=== PATIENT | female | born 1955 | race Caucasian/White ===

== ENCOUNTER 2019-12-31 16:17 | Inpatient (IN) ==
[2019-12-31 17:41] LABS: Basophils % 0.4 % (0.0-0.8); Eosinophils # 0.2 10*3/uL (0.0-0.87); Eosinophils % 1.5 % (0.00-10.9); Hematocrit 43.3 VOL% (35.7-47.0); Hemoglobin 13.4 GM/DL (12.0-16.0); Hgb & Hct Comparison OK; Immature Granulocytes % 0.8 %; Immature Granulocytes Absolute 0.09 #; Lymphocytes # 1.9 10*3/uL (1.4-4.0); Lymphocytes % 16.4 % (21.3-54.2); Mean Corpuscular HGB Conc 30.9 GM/DL (32-36); Mean Corpuscular Hemoglobin 27 PG (27-34); Mean Corpuscular Volume 88.5 FL (87-102); Monocytes # 0.7 10*3/uL (0.11-0.8); Monocytes % 6.4 % (1.7-12.7); Neutrophils # 8.4 10*3/uL (1.4-7.4); Neutrophils % 74.5 % (38.7-73.9); Platelet Count 400 T/CUMM (130-400)
[2019-12-31 17:52] LABS: D-Dimer <= 0.5 MG/L FEU (<=0.5); PT Patient Result 10.8 SECS (9.8-11.9)
[2019-12-31 18:10] LABS: Albumin/Globulin Ratio 0.8 RATIO (1.1-2.2); Anion Gap 6.9 MMOL/L (5.0-15.0); Bilirubin,Total 0.5 MG/DL (0.2-1.0); Globulin 3.2 G/DL (2.3-3.5); Osmolality,Calculated 280.3 MOS/KG (273-304); Potassium 3.9 MMOL/L (3.5-5.1)
[2019-12-31] MEDS ORDERED: guaiFENesin/DM ER 600-30 MG TABLET PO PRN (19:04)
[2019-12-31] MEDS ORDERED: PROMETHAZINE 25 MG/1 ML VIAL IM PRN (19:04)
[2019-12-31] MEDS ORDERED: NICOTINE 21 MG/24 HR PATCH TRANSDERM PRN (19:04)
[2019-12-31] MEDS ORDERED: LEVOFLOXACIN INJ 100 ML IV ONE (20:51)
[2019-12-31] MEDS: LEVOFLOXACIN INJ 500 MG in PREMIX 1 EACH IV SCH (20:56)
[2019-12-31] MEDS: SODIUM CHLORIDE 0.9% 1,000 ML IV SCH (22:16)
[2020-01-01] MEDS: ALBUTEROL/IPRATROPIUM 3 ML NEB RESP TX SCH ×4 (00:25→19:23)
[2020-01-01 05:21] LABS: Basophils % 0.3 % (0.0-0.8); Eosinophils # 0.3 10*3/uL (0.0-0.87); Eosinophils % 2.8 % (0.00-10.9); Hematocrit 41.6 VOL% (35.7-47.0); Hemoglobin 12.9 GM/DL (12.0-16.0); Hgb & Hct Comparison OK; Immature Granulocytes % 0.4 %; Immature Granulocytes Absolute 0.05 #; Lymphocytes # 1.6 10*3/uL (1.4-4.0); Lymphocytes % 13.9 % (21.3-54.2); Mean Corpuscular Hemoglobin 28 PG (27-34); Mean Corpuscular Volume 89.1 FL (87-102); Monocytes # 0.8 10*3/uL (0.11-0.8); Monocytes % 7.2 % (1.7-12.7); Neutrophils # 8.6 10*3/uL (1.4-7.4); Neutrophils % 75.4 % (38.7-73.9); Platelet Count 375 T/CUMM (130-400)
[2020-01-01 05:35] LABS: Anion Gap 6.5 MMOL/L (5.0-15.0); Osmolality,Calculated 278.4 MOS/KG (273-304); Potassium 3.5 MMOL/L (3.5-5.1)
[2020-01-01] MEDS: SODIUM CHLORIDE 0.9% 1,000 ML IV SCH (08:44)
[2020-01-01] MEDS: PARoxetine 20 MG TABLET PO SCH (10:40)
[2020-01-01] MEDS: LEVOFLOXACIN INJ 500 MG in PREMIX 1 EACH IV SCH (20:42)
[2020-01-02] MEDS: ALBUTEROL/IPRATROPIUM 3 ML NEB RESP TX SCH ×4 (01:03→20:19)
[2020-01-02 06:31] LABS: Basophils % 0.2 % (0.0-0.8); Eosinophils # 0.2 10*3/uL (0.0-0.87); Eosinophils % 2.3 % (0.00-10.9); Hematocrit 39.8 VOL% (35.7-47.0); Hemoglobin 12.3 GM/DL (12.0-16.0); Hgb & Hct Comparison OK; Immature Granulocytes % 0.4 %; Immature Granulocytes Absolute 0.04 #; Lymphocytes # 1.4 10*3/uL (1.4-4.0); Mean Corpuscular HGB Conc 30.9 GM/DL (32-36); Mean Corpuscular Hemoglobin 28 PG (27-34); Mean Corpuscular Volume 89.4 FL (87-102); Monocytes # 0.7 10*3/uL (0.11-0.8); Neutrophils # 7.2 10*3/uL (1.4-7.4); Neutrophils % 75.1 % (38.7-73.9); Platelet Count 362 T/CUMM (130-400)
[2020-01-02 07:00] LABS: Anion Gap 7.2 MMOL/L (5.0-15.0); Osmolality,Calculated 274.5 MOS/KG (273-304); Potassium 3.2 MMOL/L (3.5-5.1)
[2020-01-02] MEDS: PARoxetine 20 MG TABLET PO SCH (09:37)
[2020-01-02] MEDS: SODIUM CHLORIDE 0.9% 1,000 ML IV SCH ×2 (12:10→21:06)
[2020-01-02] MEDS: POTASSIUM CHLORIDE 20 MEQ TABLET PO PRN ×4 (13:00→18:30)
[2020-01-02] MEDS ORDERED: ZALEPLON 5 MG CAPSULE PO PRN (20:41)
[2020-01-02] MEDS: LEVOFLOXACIN INJ 500 MG in PREMIX 1 EACH IV SCH (21:06)
[2020-01-03] MEDS: ALBUTEROL/IPRATROPIUM 3 ML NEB RESP TX SCH ×4 (01:09→18:50)
[2020-01-03 06:02] LABS: Anion Gap 9.1 MMOL/L (5.0-15.0); Magnesium 1.9 MG/DL (1.8-2.4); Osmolality,Calculated 274.5 MOS/KG (273-304); Potassium 4.1 MMOL/L (3.5-5.1)
[2020-01-03] MEDS: PARoxetine 20 MG TABLET PO SCH (10:07)
[2020-01-03] MEDS: SODIUM CHLORIDE 0.9% 1,000 ML IV SCH ×2 (14:23→21:04)
[2020-01-03] MEDS: TEMAZEPAM 7.5 MG CAPSULE PO SCH (21:03)
[2020-01-03] MEDS: LEVOFLOXACIN INJ 500 MG in PREMIX 1 EACH IV SCH (21:04)
[2020-01-04] MEDS: ALBUTEROL/IPRATROPIUM 3 ML NEB RESP TX SCH ×4 (01:43→19:42)
[2020-01-04 05:17] LABS: Basophils % 0.3 % (0.0-0.8); Eosinophils # 0.4 10*3/uL (0.0-0.87); Eosinophils % 3.4 % (0.00-10.9); Hematocrit 42.7 VOL% (35.7-47.0); Hemoglobin 13.1 GM/DL (12.0-16.0); Hgb & Hct Comparison OK; Immature Granulocytes % 0.4 %; Immature Granulocytes Absolute 0.04 #; Lymphocytes # 1.5 10*3/uL (1.4-4.0); Lymphocytes % 13.7 % (21.3-54.2); Mean Corpuscular HGB Conc 30.7 GM/DL (32-36); Mean Corpuscular Hemoglobin 28 PG (27-34); Mean Corpuscular Volume 90.1 FL (87-102); Monocytes # 0.8 10*3/uL (0.11-0.8); Monocytes % 7.6 % (1.7-12.7); Neutrophils # 7.9 10*3/uL (1.4-7.4); Neutrophils % 74.6 % (38.7-73.9); Platelet Count 383 T/CUMM (130-400)
[2020-01-04 05:24] LABS: PT Patient Result 10.9 SECS (9.8-11.9)
[2020-01-04 05:31] LABS: Anion Gap 7.7 MMOL/L (5.0-15.0); Osmolality,Calculated 274.5 MOS/KG (273-304); Potassium 4.7 MMOL/L (3.5-5.1)
[2020-01-04] MEDS ORDERED: PROMETHAZINE 25 MG/1 ML VIAL IM ONE (07:46)
[2020-01-04] MEDS ORDERED: MEPERIDINE 50 MG/1 ML VIAL IM ONE (07:46)
[2020-01-04] MEDS ORDERED: MIDAZOLAM 2 MG/2 ML VIAL ONE (08:15)
[2020-01-04] MEDS ORDERED: LIDOCAINE 1% 20 ML VIAL MISC INJ ONE (08:30)
[2020-01-04] MEDS ORDERED: LIDOCAINE 2% 20 ML VIAL RESP TX ONE (08:30)
[2020-01-04] MEDS ORDERED: MIDAZOLAM 2 MG/2 ML VIAL IV ONE (08:30)
[2020-01-04] MEDS ORDERED: LIDOCAINE 2% VISCOUS 100 ML BOTTLE SWISH/SPIT ONE (08:30)
[2020-01-04] MEDS: PARoxetine 20 MG TABLET PO SCH (11:23)
[2020-01-04] MEDS: SODIUM CHLORIDE 0.9% 1,000 ML IV SCH ×2 (16:56→21:16)
[2020-01-04] MEDS: LEVOFLOXACIN INJ 500 MG in PREMIX 1 EACH IV SCH (20:05)
[2020-01-04] MEDS: TEMAZEPAM 7.5 MG CAPSULE PO SCH (21:04)
[2020-01-05] MEDS: ALBUTEROL/IPRATROPIUM 3 ML NEB RESP TX SCH ×4 (00:25→19:38)
[2020-01-05] MEDS: PARoxetine 20 MG TABLET PO SCH (09:03)
[2020-01-05] MEDS: LEVOFLOXACIN INJ 500 MG in PREMIX 1 EACH IV SCH (19:27)
[2020-01-05] MEDS: SODIUM CHLORIDE 0.9% 1,000 ML IV SCH (19:28)
[2020-01-05] MEDS: TEMAZEPAM 7.5 MG CAPSULE PO SCH (20:35)
[2020-01-06] MEDS: ALBUTEROL/IPRATROPIUM 3 ML NEB RESP TX SCH ×4 (00:05→20:02)
[2020-01-06] MEDS: PARoxetine 20 MG TABLET PO SCH (09:53)
[2020-01-06] MEDS ORDERED: DIAZEPAM 5 MG TABLET PO ONE (13:19)
[2020-01-06] MEDS ORDERED: HYDROmorphone 2 MG/1 ML VIAL IV PRN (16:38)
[2020-01-06] MEDS ORDERED: KETOROLAC 30 MG/1 ML VIAL IV ONE (16:38)
[2020-01-06] MEDS: LEVOFLOXACIN INJ 500 MG in PREMIX 1 EACH IV SCH (20:14)
[2020-01-06] MEDS: TEMAZEPAM 7.5 MG CAPSULE PO SCH (20:35)
[2020-01-06] MEDS: SODIUM CHLORIDE 0.9% 1,000 ML IV SCH (22:10)
[2020-01-06] MEDS: KETOROLAC 30 MG/1 ML VIAL IV PRN (22:26)
[2020-01-07] MEDS: ALBUTEROL/IPRATROPIUM 3 ML NEB RESP TX SCH ×4 (00:12→19:20)
[2020-01-07] MEDS: KETOROLAC 30 MG/1 ML VIAL IV PRN (02:46)
[2020-01-07] MEDS: PARoxetine 20 MG TABLET PO SCH (08:40)
[2020-01-07] MEDS ORDERED: ENOXAPARIN 40 MG/0.4 ML SYRINGE SUBCUT SCH (21:00)
[2020-01-07] MEDS: TEMAZEPAM 7.5 MG CAPSULE PO SCH (21:00)
[2020-01-07] MEDS: DOCUSATE SODIUM 100 MG CAPSULE PO SCH (21:00)
[2020-01-07] MEDS: LEVOFLOXACIN INJ 500 MG in PREMIX 1 EACH IV SCH (21:02)
[2020-01-08] MEDS: ALBUTEROL/IPRATROPIUM 3 ML NEB RESP TX SCH ×4 (01:00→19:45)
[2020-01-08 06:21] LABS: Basophils % 0.3 % (0.0-0.8); Eosinophils # 0.4 10*3/uL (0.0-0.87); Eosinophils % 3.8 % (0.00-10.9); Hematocrit 38.1 VOL% (35.7-47.0); Hemoglobin 11.7 GM/DL (12.0-16.0); Hgb & Hct Comparison OK; Immature Granulocytes % 0.4 %; Immature Granulocytes Absolute 0.05 #; Lymphocytes # 1.7 10*3/uL (1.4-4.0); Lymphocytes % 14.7 % (21.3-54.2); Mean Corpuscular HGB Conc 30.7 GM/DL (32-36); Mean Corpuscular Hemoglobin 28 PG (27-34); Mean Corpuscular Volume 90.5 FL (87-102); Monocytes # 0.9 10*3/uL (0.11-0.8); Monocytes % 8.1 % (1.7-12.7); Neutrophils # 8.1 10*3/uL (1.4-7.4); Neutrophils % 72.7 % (38.7-73.9); Platelet Count 382 T/CUMM (130-400)
[2020-01-08 06:35] LABS: Osmolality,Calculated 271.8 MOS/KG (273-304)
[2020-01-08] MEDS: PARoxetine 20 MG TABLET PO SCH (08:34)
[2020-01-08] MEDS: DOCUSATE SODIUM 100 MG CAPSULE PO SCH ×2 (08:35→20:45)
[2020-01-08] MEDS ORDERED: guaiFENesin/CODEINE 5 ML LIQUID PO PRN (09:41)
[2020-01-08] MEDS: predniSONE 20 MG TABLET PO SCH (15:00)
[2020-01-08] MEDS: ALUMINUM/MAGNES/SIMETH MAX STR 30 ML UDCUP PO PRN ×2 (16:59→22:11)
[2020-01-08] MEDS: TEMAZEPAM 7.5 MG CAPSULE PO SCH (20:45)
[2020-01-09] MEDS: ALBUTEROL/IPRATROPIUM 3 ML NEB RESP TX SCH ×3 (01:40→12:54)
[2020-01-09] MEDS: DOCUSATE SODIUM 100 MG CAPSULE PO SCH (08:26)
[2020-01-09] MEDS: predniSONE 20 MG TABLET PO SCH (08:26)
[2020-01-09] MEDS: PARoxetine 20 MG TABLET PO SCH (08:26)
[2020-01-09] MEDS ORDERED: BUDESONIDE/FORMOTEROL 160-4.5 INHALER 6 GM INH SCH (10:00)
[2020-01-09 12:06] VITALS: BP 128/70
[2020-01-10] MEDS ORDERED: LEVOFLOXACIN 500 MG TABLET PO SCH (09:00)
== END 2020-01-09 14:02 | disposition home or self-care (01) ==
LOC: EDUNIT# → EDBD → N.ED 16:17 → SUPCPDRO 19:04 → SUATTDRO 19:04 → N.EDINP 19:04 → N.TELES 22:03 → N.4E 01-04 12:47
PROVIDERS: ADMIT Internal Medicine; ATTEND Hospitalist

== ENCOUNTER 2020-02-25 06:53 | Inpatient (IN) ==
[2020-02-25] MEDS ORDERED: ceFAZolin 1,000 MG in SYRINGE 1 EACH IV ONE (07:00)
[2020-02-25] MEDS ORDERED: HEPARIN/NACL 0.9% 2 UNITS/ML 500 ML IV ONE (07:17)
[2020-02-25] MEDS ORDERED: EPINEPHrine 1 MG/ML VIAL ONE (07:35)
[2020-02-25] MEDS ORDERED: LIDOCAINE 1% 5 ML VIAL ONE (07:35)
[2020-02-25] MEDS ORDERED: FAMOTIDINE 20 MG TABLET PO ONE (07:38)
[2020-02-25] MEDS ORDERED: DIAZEPAM 5 MG TABLET PO ONE (07:39)
[2020-02-25] MEDS ORDERED: ceFAZolin 1,000 MG VIAL ONE (07:44)
[2020-02-25] MEDS ORDERED: FAMOTIDINE 20 MG TABLET ONE (07:45)
[2020-02-25] MEDS ORDERED: DIAZEPAM 5 MG TABLET ONE (07:45)
[2020-02-25] MEDS: LACTATED RINGERS 1,000 ML IV SCH ×3 (07:54→22:26)
[2020-02-25] MEDS ORDERED: MIDAZOLAM 2 MG/2 ML VIAL ONE ×2 (07:59→10:52)
[2020-02-25] MEDS ORDERED: fentaNYL 100 MCG/2 ML VIAL ONE ×2 (07:59→10:52)
[2020-02-25] MEDS ORDERED: TALC INTRAPLEURAL POWDER 3 GM VIAL INTRAPLEUR ONE (08:14)
[2020-02-25] MEDS ORDERED: SUGAMMADEX 200 MG/2 ML VIAL IV ONE (09:48)
[2020-02-25] MEDS ORDERED: TISSUE ADHESIVE 1 EACH APPLICATOR TOP ONE (10:15)
[2020-02-25] MEDS ORDERED: ONDANSETRON 4 MG/2 ML VIAL IV PRN ×2 (10:26→10:45)
[2020-02-25] MEDS ORDERED: PROMETHAZINE INJ 25 MG in SODIUM CHLORIDE 0.9% 50 ML IV PRN (10:45)
[2020-02-25] MEDS ORDERED: diphenhydrAMINE 50 MG/1 ML VIAL IV PRN (10:45)
[2020-02-25] MEDS: MEPERIDINE 25 MG/1 ML VIAL IV PRN ×2 (10:50→11:30)
[2020-02-25] MEDS ORDERED: propofoL 200 MG/20 ML VIAL IV ONE (10:52)
[2020-02-25] MEDS ORDERED: SEVOFLURANE 1 UNIT/15 MINUTE INH ONE (10:52)
[2020-02-25] MEDS ORDERED: LIDOCAINE 2% 5 ML VIAL ONE (10:52)
[2020-02-25] MEDS ORDERED: DEXAMETHASONE 4 MG/1 ML VIAL ONE (10:52)
[2020-02-25] MEDS ORDERED: ACETAMINOPHEN 1,000 MG/100 ML VIAL IV ONE (10:53)
[2020-02-25] MEDS ORDERED: ROCURONIUM 100 MG/10 ML VIAL IV ONE (10:53)
[2020-02-25] MEDS ORDERED: KETOROLAC 30 MG/1 ML VIAL ONE (10:53)
[2020-02-25] MEDS ORDERED: ONDANSETRON 4 MG/2 ML VIAL ONE (11:26)
[2020-02-25] MEDS ORDERED: MEPERIDINE 25 MG/1 ML VIAL ONE (11:26)
[2020-02-25] MEDS ORDERED: ALBUTEROL 2.5 MG/3 ML NEB RESP TX ONE ×2 (11:35→11:38)
[2020-02-25 12:35] LABS: Basophils % 0.1 % (0.0-0.8); Eosinophils # 0.1 10*3/uL (0.0-0.87); Eosinophils % 0.6 % (0.00-10.9); Hematocrit 31.6 VOL% (35.7-47.0); Hemoglobin 9.8 GM/DL (12.0-16.0); Immature Granulocytes % 1.3 %; Immature Granulocytes Absolute 0.29 #; Lymphocytes # 0.6 10*3/uL (1.4-4.0); Lymphocytes % 2.6 % (21.3-54.2); Mean Corpuscular Volume 90.5 FL (87-102); Mean Platelet Volume 8.6 FL (9.6-12.0); Monocytes % 1.7 % (1.7-12.7); Neutrophils % 93.7 % (38.7-73.9); Platelet Count 567 T/CUMM (130-400); Red Blood Count 3.49 MC/CUMM (3.8-5.5); Red Cell Distribution Width 15.5 % (9.3-17.3); White Blood Count 21.8 T/CUMM (4-12)
[2020-02-25 12:53] LABS: Eosinophils 1 % (0-10); Hypochromasia 1+; Lymphocytes 3 % (20-55); Microcytosis 1+; Platelet Estimate Increased; Segmented Neutrophils 95 % (50-85); Total Cells Counted 100
[2020-02-25 12:56] LABS: Calcium 7.9 MG/DL (8.5-10.1); Osmolality,Calculated 280.4 MOS/KG (273-304)
[2020-02-25] MEDS: ALBUTEROL/IPRATROPIUM 3 ML NEB RESP TX SCH ×2 (13:09→19:40)
[2020-02-25] MEDS: HYDROmorphone 2 MG/1 ML VIAL IV PRN ×2 (14:10→19:52)
[2020-02-25] MEDS: oxyCODONE/ACETAMINOPHEN 5-325 MG TABLET PO PRN ×2 (16:40→22:35)
[2020-02-25] MEDS: BUDESONIDE/FORMOTEROL 160-4.5 INHALER 6 GM INH SCH (20:00)
[2020-02-25] MEDS ORDERED: NON-FORMULARY MEDICATION (Albuterol Sulfate 90 mcg/actuation HFA aerosol inhaler) INH SCH (21:00)
[2020-02-26] MEDS: ALBUTEROL/IPRATROPIUM 3 ML NEB RESP TX SCH ×4 (01:07→19:33)
[2020-02-26] MEDS: HYDROmorphone 2 MG/1 ML VIAL IV PRN ×3 (04:34→20:34)
[2020-02-26] MEDS: oxyCODONE/ACETAMINOPHEN 5-325 MG TABLET PO PRN ×2 (06:01→19:23)
[2020-02-26] MEDS: LACTATED RINGERS 1,000 ML IV SCH ×2 (08:21→08:22)
[2020-02-26] MEDS: ENOXAPARIN 40 MG/0.4 ML SYRINGE SUBCUT SCH (11:16)
[2020-02-26] MEDS: PARoxetine 20 MG TABLET PO SCH (11:16)
[2020-02-26] MEDS: BUDESONIDE/FORMOTEROL 160-4.5 INHALER 6 GM INH SCH ×2 (11:16→20:33)
[2020-02-26] MEDS: KETOROLAC 10 MG TABLET PO PRN (21:17)
[2020-02-27] MEDS: ALBUTEROL/IPRATROPIUM 3 ML NEB RESP TX SCH ×4 (00:16→19:41)
[2020-02-27] MEDS: KETOROLAC 10 MG TABLET PO PRN ×3 (06:54→22:50)
[2020-02-27] MEDS: HYDROmorphone 2 MG/1 ML VIAL IV PRN ×4 (06:54→22:50)
[2020-02-27] MEDS: ENOXAPARIN 40 MG/0.4 ML SYRINGE SUBCUT SCH (09:05)
[2020-02-27] MEDS: PARoxetine 20 MG TABLET PO SCH (09:06)
[2020-02-27] MEDS: BUDESONIDE/FORMOTEROL 160-4.5 INHALER 6 GM INH SCH ×3 (09:06→20:15)
[2020-02-28] MEDS: ALBUTEROL/IPRATROPIUM 3 ML NEB RESP TX SCH ×4 (00:35→20:23)
[2020-02-28] MEDS: HYDROmorphone 2 MG/1 ML VIAL IV PRN ×3 (04:12→20:38)
[2020-02-28] MEDS: KETOROLAC 10 MG TABLET PO PRN (05:51)
[2020-02-28] MEDS: oxyCODONE/ACETAMINOPHEN 5-325 MG TABLET PO PRN ×2 (05:52→15:50)
[2020-02-28] MEDS: ENOXAPARIN 40 MG/0.4 ML SYRINGE SUBCUT SCH (13:36)
[2020-02-28] MEDS: PARoxetine 20 MG TABLET PO SCH (13:37)
[2020-02-28] MEDS: BUDESONIDE/FORMOTEROL 160-4.5 INHALER 6 GM INH SCH ×2 (13:38→20:38)
[2020-02-29] MEDS: HYDROmorphone 2 MG/1 ML VIAL IV PRN ×4 (00:31→20:38)
[2020-02-29] MEDS: ALBUTEROL/IPRATROPIUM 3 ML NEB RESP TX SCH ×4 (01:00→19:36)
[2020-02-29] MEDS: oxyCODONE/ACETAMINOPHEN 5-325 MG TABLET PO PRN (08:51)
[2020-02-29] MEDS: PARoxetine 20 MG TABLET PO SCH (09:25)
[2020-02-29] MEDS: ENOXAPARIN 40 MG/0.4 ML SYRINGE SUBCUT SCH (09:25)
[2020-02-29] MEDS: BUDESONIDE/FORMOTEROL 160-4.5 INHALER 6 GM INH SCH ×2 (09:57→20:37)
[2020-03-01] MEDS: ALBUTEROL/IPRATROPIUM 3 ML NEB RESP TX SCH ×4 (01:06→19:47)
[2020-03-01] MEDS: HYDROmorphone 2 MG/1 ML VIAL IV PRN ×3 (01:24→18:21)
[2020-03-01] MEDS: oxyCODONE/ACETAMINOPHEN 5-325 MG TABLET PO PRN ×3 (05:38→21:08)
[2020-03-01] MEDS: ENOXAPARIN 40 MG/0.4 ML SYRINGE SUBCUT SCH (09:16)
[2020-03-01] MEDS: PARoxetine 20 MG TABLET PO SCH (09:16)
[2020-03-01] MEDS: BUDESONIDE/FORMOTEROL 160-4.5 INHALER 6 GM INH SCH ×2 (09:23→20:49)
[2020-03-01 11:43] LABS: Basophils % 0.3 % (0.0-0.8); Eosinophils # 0.5 10*3/uL (0.0-0.87); Eosinophils % 3.3 % (0.00-10.9); Hematocrit 28.7 VOL% (35.7-47.0); Hemoglobin 8.9 GM/DL (12.0-16.0); Immature Granulocytes % 0.7 %; Immature Granulocytes Absolute 0.11 #; Lymphocytes # 1.2 10*3/uL (1.4-4.0); Lymphocytes % 7.4 % (21.3-54.2); Mean Corpuscular Volume 88.3 FL (87-102); Mean Platelet Volume 8.5 FL (9.6-12.0); Monocytes % 8.1 % (1.7-12.7); Neutrophils % 80.2 % (38.7-73.9); Platelet Count 583 T/CUMM (130-400); Red Blood Count 3.25 MC/CUMM (3.8-5.5); Red Cell Distribution Width 14.7 % (9.3-17.3); White Blood Count 15.9 T/CUMM (4-12)
[2020-03-01 11:57] LABS: Calcium 8.7 MG/DL (8.5-10.1); Osmolality,Calculated 271.8 MOS/KG (273-304)
[2020-03-01 11:58] LABS: INR 1.1; PT Patient Result 11.4 SECS (9.8-11.9)
[2020-03-02] MEDS: ALBUTEROL/IPRATROPIUM 3 ML NEB RESP TX SCH ×4 (00:29→19:35)
[2020-03-02] MEDS: oxyCODONE/ACETAMINOPHEN 5-325 MG TABLET PO PRN ×2 (04:37→21:07)
[2020-03-02 06:56] LABS: Basophils % 0.2 % (0.0-0.8); Eosinophils # 0.4 10*3/uL (0.0-0.87); Eosinophils % 2.5 % (0.00-10.9); Hematocrit 29.7 VOL% (35.7-47.0); Hemoglobin 9.2 GM/DL (12.0-16.0); Immature Granulocytes % 0.6 %; Immature Granulocytes Absolute 0.11 #; Lymphocytes % 5.7 % (21.3-54.2); Mean Corpuscular Volume 87.6 FL (87-102); Mean Platelet Volume 9.2 FL (9.6-12.0); Monocytes % 8.1 % (1.7-12.7); Neutrophils % 82.9 % (38.7-73.9); Platelet Count 601 T/CUMM (130-400); Red Blood Count 3.39 MC/CUMM (3.8-5.5); Red Cell Distribution Width 14.8 % (9.3-17.3); White Blood Count 17.8 T/CUMM (4-12)
[2020-03-02 07:09] LABS: Calcium 8.6 MG/DL (8.5-10.1); Osmolality,Calculated 273.7 MOS/KG (273-304)
[2020-03-02] MEDS: HYDROmorphone 2 MG/1 ML VIAL IV PRN ×4 (09:20→22:45)
[2020-03-02] MEDS ORDERED: TALC INTRAPLEURAL POWDER 3 GM VIAL INTRAPLEUR ONE (10:28)
[2020-03-02] MEDS ORDERED: SUGAMMADEX 200 MG/2 ML VIAL IV ONE (12:50)
[2020-03-02] MEDS ORDERED: ALBUTEROL/IPRATROPIUM 3 ML NEB RESP TX ONE (13:02)
[2020-03-02] MEDS ORDERED: propofoL 200 MG/20 ML VIAL IV ONE (13:08)
[2020-03-02] MEDS ORDERED: LIDOCAINE 2% 5 ML VIAL ONE (13:09)
[2020-03-02] MEDS ORDERED: SEVOFLURANE 1 UNIT/15 MINUTE INH ONE (13:09)
[2020-03-02] MEDS ORDERED: MIDAZOLAM 2 MG/2 ML VIAL ONE (13:09)
[2020-03-02] MEDS ORDERED: ONDANSETRON 4 MG/2 ML VIAL ONE (13:10)
[2020-03-02] MEDS ORDERED: KETOROLAC 30 MG/1 ML VIAL ONE (13:10)
[2020-03-02] MEDS ORDERED: fentaNYL 100 MCG/2 ML VIAL ONE (13:10)
[2020-03-02] MEDS ORDERED: ROCURONIUM 100 MG/10 ML VIAL IV ONE (13:10)
[2020-03-02] MEDS ORDERED: diphenhydrAMINE 50 MG/1 ML VIAL IV PRN (13:18)
[2020-03-02] MEDS ORDERED: ONDANSETRON 4 MG/2 ML VIAL IV PRN (13:18)
[2020-03-02] MEDS ORDERED: PROMETHAZINE INJ 25 MG in SODIUM CHLORIDE 0.9% 50 ML IV PRN (13:18)
[2020-03-02] MEDS: MEPERIDINE 25 MG/1 ML VIAL IV PRN ×2 (13:20→13:30)
[2020-03-02] MEDS ORDERED: PROMETHAZINE 25 MG/1 ML VIAL ONE (13:20)
[2020-03-02] MEDS: PARoxetine 20 MG TABLET PO SCH (16:51)
[2020-03-02] MEDS: BUDESONIDE/FORMOTEROL 160-4.5 INHALER 6 GM INH SCH ×2 (16:52→22:45)
[2020-03-02] MEDS: KETOROLAC 10 MG TABLET PO SCH (19:31)
[2020-03-03] MEDS: KETOROLAC 10 MG TABLET PO SCH ×4 (00:28→17:46)
[2020-03-03] MEDS: HYDROmorphone 2 MG/1 ML VIAL IV PRN ×5 (01:31→17:46)
[2020-03-03] MEDS: ALBUTEROL/IPRATROPIUM 3 ML NEB RESP TX SCH ×4 (01:33→20:08)
[2020-03-03] MEDS: oxyCODONE/ACETAMINOPHEN 5-325 MG TABLET PO PRN ×2 (04:17→21:12)
[2020-03-03 05:50] LABS: Basophils % 0.2 % (0.0-0.8); Eosinophils # 0.7 10*3/uL (0.0-0.87); Eosinophils % 3.7 % (0.00-10.9); Hematocrit 29.3 VOL% (35.7-47.0); Hemoglobin 8.9 GM/DL (12.0-16.0); Immature Granulocytes % 0.9 %; Immature Granulocytes Absolute 0.17 #; Lymphocytes # 1.3 10*3/uL (1.4-4.0); Lymphocytes % 6.5 % (21.3-54.2); Mean Corpuscular HGB Conc 30.4 GM/DL (32-36); Mean Corpuscular Volume 90.2 FL (87-102); Mean Platelet Volume 8.9 FL (9.6-12.0); Neutrophils % 80.7 % (38.7-73.9); Platelet Count 563 T/CUMM (130-400); Red Blood Count 3.25 MC/CUMM (3.8-5.5); White Blood Count 19.8 T/CUMM (4-12)
[2020-03-03 06:14] LABS: Calcium 8.3 MG/DL (8.5-10.1); Osmolality,Calculated 280.5 MOS/KG (273-304)
[2020-03-03] MEDS: PARoxetine 20 MG TABLET PO SCH (08:23)
[2020-03-03] MEDS: BUDESONIDE/FORMOTEROL 160-4.5 INHALER 6 GM INH SCH ×2 (08:30→21:13)
[2020-03-03] MEDS: ENOXAPARIN 40 MG/0.4 ML SYRINGE SUBCUT SCH (16:41)
[2020-03-04] MEDS: KETOROLAC 10 MG TABLET PO SCH ×5 (00:46→23:33)
[2020-03-04] MEDS: HYDROmorphone 2 MG/1 ML VIAL IV PRN ×4 (01:08→23:33)
[2020-03-04] MEDS: ALBUTEROL/IPRATROPIUM 3 ML NEB RESP TX SCH ×4 (02:54→19:03)
[2020-03-04] MEDS: ENOXAPARIN 40 MG/0.4 ML SYRINGE SUBCUT SCH (09:41)
[2020-03-04] MEDS: PARoxetine 20 MG TABLET PO SCH (09:41)
[2020-03-04] MEDS: BUDESONIDE/FORMOTEROL 160-4.5 INHALER 6 GM INH SCH ×2 (09:43→20:45)
[2020-03-04] MEDS: oxyCODONE/ACETAMINOPHEN 5-325 MG TABLET PO PRN (21:26)
[2020-03-05] MEDS: ALBUTEROL/IPRATROPIUM 3 ML NEB RESP TX SCH ×4 (00:02→20:01)
[2020-03-05] MEDS: oxyCODONE/ACETAMINOPHEN 5-325 MG TABLET PO PRN ×3 (04:32→18:55)
[2020-03-05] MEDS: KETOROLAC 10 MG TABLET PO SCH ×2 (05:37→11:21)
[2020-03-05] MEDS: HYDROmorphone 2 MG/1 ML VIAL IV PRN (08:01)
[2020-03-05] MEDS: PARoxetine 20 MG TABLET PO SCH (08:02)
[2020-03-05] MEDS: ENOXAPARIN 40 MG/0.4 ML SYRINGE SUBCUT SCH (08:02)
[2020-03-05] MEDS: BUDESONIDE/FORMOTEROL 160-4.5 INHALER 6 GM INH SCH ×2 (08:14→20:35)
[2020-03-05 16:06] LABS: ABG Base Excess 7.6 MMOL/L (-2.5-2.5); ABG HCO3 31.3 MMOL/L (20-26); ABG Oxygen Saturation 94.7 % (95-100); ABG PCO2 46.7 MM HG (35-48); ABG PH 7.451 (7.35-7.45); ABG PO2 71.4 MM HG (80-95); ABG TCO2 30.1 MMOL/L (23-27); Allen Test Positive; Pt O2 Delivery Device Venturi Mask
[2020-03-05] MEDS: methylPREDNISolone SOD SUC 40 MG/1 ML VIAL IV SCH (20:35)
[2020-03-05] MEDS: MEROPENEM 500 MG in SODIUM CHLORIDE 0.9% 100 ML IV SCH (20:36)
[2020-03-06] MEDS: ALBUTEROL/IPRATROPIUM 3 ML NEB RESP TX SCH ×4 (00:15→20:09)
[2020-03-06] MEDS: ACETYLCYSTEINE 20% 800 MG/4 ML VIAL RESP TX SCH ×3 (00:22→12:30)
[2020-03-06] MEDS: oxyCODONE/ACETAMINOPHEN 5-325 MG TABLET PO PRN ×3 (01:20→17:47)
[2020-03-06] MEDS: MEROPENEM 500 MG in SODIUM CHLORIDE 0.9% 100 ML IV SCH ×4 (01:20→20:03)
[2020-03-06] MEDS: methylPREDNISolone SOD SUC 40 MG/1 ML VIAL IV SCH ×3 (03:10→20:03)
[2020-03-06] MEDS: ENOXAPARIN 40 MG/0.4 ML SYRINGE SUBCUT SCH (08:11)
[2020-03-06] MEDS: PARoxetine 20 MG TABLET PO SCH (08:11)
[2020-03-06] MEDS: BUDESONIDE/FORMOTEROL 160-4.5 INHALER 6 GM INH SCH ×2 (08:12→20:03)
[2020-03-07] MEDS: MEROPENEM 500 MG in SODIUM CHLORIDE 0.9% 100 ML IV SCH ×2 (00:34→08:09)
[2020-03-07] MEDS: ACETYLCYSTEINE 20% 800 MG/4 ML VIAL RESP TX SCH ×2 (00:40→07:46)
[2020-03-07] MEDS: ALBUTEROL/IPRATROPIUM 3 ML NEB RESP TX SCH ×2 (00:40→07:46)
[2020-03-07] MEDS: methylPREDNISolone SOD SUC 40 MG/1 ML VIAL IV SCH ×2 (03:24→10:34)
[2020-03-07] MEDS: BUDESONIDE/FORMOTEROL 160-4.5 INHALER 6 GM INH SCH (08:08)
[2020-03-07] MEDS: oxyCODONE/ACETAMINOPHEN 5-325 MG TABLET PO PRN (08:08)
[2020-03-07] MEDS: PARoxetine 20 MG TABLET PO SCH (08:09)
[2020-03-07] MEDS: ENOXAPARIN 40 MG/0.4 ML SYRINGE SUBCUT SCH (08:09)
[2020-03-07 11:21] VITALS: BP 139/76
== END 2020-03-07 12:50 | disposition home or self-care (01) | DRG 180 ==
LOC: N.OR 06:53 → N.SDSINP 06:54 → N.3E 11:59
PROVIDERS: ADMIT Surgery; ATTEND Surgery

== ENCOUNTER 2020-03-09 15:24 | Observation (INO) ==
[2020-03-09] MEDS ORDERED: chlorproMAZINE INJ 25 MG in SODIUM CHLORIDE 0.9% 100 ML IV PRN (17:20)
[2020-03-09] MEDS ORDERED: LACTULOSE 20 GM/30 ML UDCUP PO PRN (17:20)
[2020-03-09] MEDS ORDERED: chlorproMAZINE 25 MG TABLET PO PRN (17:20)
[2020-03-09] MEDS ORDERED: MAGNESIUM HYDROXIDE SUSP 30 ML UDCUP PO PRN (17:20)
[2020-03-09] MEDS ORDERED: traMADol 50 MG TABLET PO PRN (17:20)
[2020-03-09] MEDS ORDERED: ONDANSETRON 4 MG/2 ML VIAL IV PRN (17:20)
[2020-03-09] MEDS ORDERED: guaiFENesin 200 MG/10 ML UDCUP PO PRN (17:20)
[2020-03-09] MEDS ORDERED: BENZTROPINE 2 MG/2 ML AMP IV PRN (17:20)
[2020-03-09] MEDS ORDERED: PROMETHAZINE INJ 25 MG in SODIUM CHLORIDE 0.9% 50 ML IV PRN (17:20)
[2020-03-09] MEDS ORDERED: MYLANTA/LIDO VISC 2:1 300 ML BOTTLE SWISH/SPIT PRN (17:20)
[2020-03-09] MEDS ORDERED: MYLANTA/LIDO VISC 2:1 300 ML BOTTLE SWISH/SWAL PRN (17:20)
[2020-03-09] MEDS ORDERED: diphenhydrAMINE CAP 25 MG CAPSULE PO PRN (17:20)
[2020-03-09] MEDS ORDERED: ALUMINUM/MAGNES/SIMETH MAX STR 30 ML UDCUP PO PRN (17:20)
[2020-03-09] MEDS ORDERED: ACETAMINOPHEN 325 MG TABLET PO PRN (17:20)
[2020-03-09] MEDS ORDERED: chlorproMAZINE INJ 50 MG in SODIUM CHLORIDE 0.9% 100 ML IV PRN (17:20)
[2020-03-09] MEDS ORDERED: TEMAZEPAM 7.5 MG CAPSULE PO PRN (17:20)
[2020-03-09] MEDS ORDERED: LOPERAMIDE 2 MG CAPSULE PO PRN ×2 (17:20)
[2020-03-09] MEDS: ALPRAZolam 0.25 MG TABLET PO PRN (18:07)
[2020-03-10] MEDS: ALPRAZolam 0.25 MG TABLET PO PRN ×2 (02:13→10:01)
[2020-03-10] MEDS ORDERED: diphenhydrAMINE 50 MG/1 ML VIAL IV ONE (09:00)
[2020-03-10] MEDS ORDERED: FAMOTIDINE 20 MG TABLET PO ONE (09:00)
[2020-03-10] MEDS ORDERED: CARBOplatin 200 MG in SODIUM CHLORIDE 0.9% 250 ML IV ONE (09:00)
[2020-03-10] MEDS ORDERED: ONDANSETRON 4 MG/2 ML VIAL IV ONE (09:00)
[2020-03-10] MEDS ORDERED: SODIUM CHLORIDE 0.9% IV ONE (09:00)
[2020-03-10] MEDS ORDERED: PACLITAXEL IV ONE (09:00)
[2020-03-10] MEDS ORDERED: DEXAMETHASONE 10 MG/1 ML VIAL IV ONE (09:00)
[2020-03-10 15:54] VITALS: BP 135/71
== END 2020-03-10 18:50 | disposition home or self-care (01) ==
LOC: N.4E
PROVIDERS: ADMIT Specialist; ATTEND Specialist

== ENCOUNTER 2020-11-20 08:35 | Observation (INO) ==
[2020-11-20] MEDS ORDERED: ONDANSETRON 4 MG/2 ML VIAL IV STA ×2 (10:58→14:00)
[2020-11-20] MEDS ORDERED: SODIUM CHLORIDE 0.9% 1,000 ML IV STA ×2 (10:58→13:05)
[2020-11-20 11:15] LABS: Basophils % 0.4 % (0.0-0.8); Hematocrit 38.8 VOL% (35.7-47.0); Hemoglobin 11.9 GM/DL (12.0-16.0); Immature Granulocytes % 0.6 %; Immature Granulocytes Absolute 0.06 #; Lymphocytes # 0.6 10*3/uL (1.4-4.0); Lymphocytes % 5.9 % (21.3-54.2); Mean Corpuscular HGB Conc 30.7 GM/DL (32-36); Mean Corpuscular Volume 77.4 FL (87-102); Mean Platelet Volume 8.7 FL (9.6-12.0); Monocytes % 8.3 % (1.7-12.7); Neutrophils % 84.8 % (38.7-73.9); Platelet Count 476 T/CUMM (130-400); Red Blood Count 5.01 MC/CUMM (3.8-5.5); Red Cell Distribution Width 17.5 % (9.3-17.3); White Blood Count 10.1 T/CUMM (4-12)
[2020-11-20 11:32] LABS: Alanine Aminotransferase < 6 U/L (13-56); Albumin 2.4 G/DL (3.4-5.0); Alkaline Phosphatase 106 U/L (45-117); Amylase 30 U/L (25-115); Aspartate Amino Transferase 7 U/L (0-37); Blood Urea Nitrogen 11 MG/DL (7-18); Calcium 8.1 MG/DL (8.5-10.1); Carbon Dioxide 32 MMOL/L (21-32); Estimated Glom Filtration Rate 112 ML/MIN; Glucose 93 MG/DL (74-106); Osmolality,Calculated 266.2 MOS/KG (273-304); Potassium 2.6 MMOL/L (3.5-5.1); Sodium 134 MMOL/L (136-145); Total Protein 6.7 G/DL (6.4-8.2)
[2020-11-20] MEDS ORDERED: POTASSIUM CHLORIDE 20 MEQ TABLET PO STA (13:59)
[2020-11-20 14:09] LABS: Bacteria,Urine Few /HPF (Few); Bilirubin,Urine Small mg/dL (Negative); Blood, Urine Small mg/dL (Negative); Glucose,Urine (UA) Negative (Negative); Ketones,Urine 5 mg/dL (Negative); Mucus,Urine Many /LPF (Occasional); Nitrite,Urine Negative (Negative); Protein,Urine 30 MG/DL; RBC,Urine 2 /HPF (0-4); Squamous Epithelial Cell,Urine Occasional /HPF (0-10); Urine Appearance CLOUDY (Clear); Urine Color Amber (Yellow); Urine Specific Gravity 1.015 (1.001-1.035)
[2020-11-20] MEDS ORDERED: cefTRIAXone 1,000 MG in SODIUM CHLORIDE 0.9% 100 ML IV STA (14:23)
[2020-11-20] MEDS ORDERED: ZALEPLON 5 MG CAPSULE PO PRN (14:36)
[2020-11-20] MEDS ORDERED: DEXTROSE 50% 25 GM/50 ML VIAL IV PRN (14:36)
[2020-11-20] MEDS ORDERED: CALCIUM CARBONATE CHEW 500 MG TABLET PO PRN (14:36)
[2020-11-20] MEDS ORDERED: ONDANSETRON 4 MG/2 ML VIAL IV PRN ×2 (14:36→15:54)
[2020-11-20] MEDS ORDERED: GLUCAGON 1 MG VIAL IM PRN (14:36)
[2020-11-20] MEDS ORDERED: DOCUSATE SODIUM 100 MG CAPSULE PO PRN (14:36)
[2020-11-20] MEDS ORDERED: ACETAMINOPHEN 325 MG TABLET PO PRN (14:36)
[2020-11-20] MEDS ORDERED: IBUPROFEN 800 MG TABLET PO PRN (14:43)
[2020-11-20] MEDS ORDERED: PROCHLORPERAZINE 10 MG TABLET PO PRN (14:43)
[2020-11-20] MEDS ORDERED: PROMETHAZINE 25 MG/1 ML VIAL IM PRN (15:13)
[2020-11-20] MEDS ORDERED: PROCHLORPERAZINE 5 MG TABLET PO PRN (15:30)
[2020-11-20] MEDS ORDERED: ALUMINUM/MAGNES/SIMETH MAX STR 30 ML UDCUP PO PRN (15:54)
[2020-11-20] MEDS ORDERED: MYLANTA/LIDO VISC 2:1 300 ML BOTTLE SWISH/SWAL PRN (15:54)
[2020-11-20] MEDS ORDERED: MAGNESIUM HYDROXIDE SUSP 30 ML UDCUP PO PRN (15:54)
[2020-11-20] MEDS ORDERED: LOPERAMIDE 2 MG CAPSULE PO PRN ×2 (15:54)
[2020-11-20] MEDS ORDERED: TEMAZEPAM 7.5 MG CAPSULE PO PRN (15:54)
[2020-11-20] MEDS ORDERED: ALPRAZolam 0.25 MG TABLET PO PRN (15:54)
[2020-11-20] MEDS ORDERED: chlorproMAZINE INJ 25 MG in SODIUM CHLORIDE 0.9% 100 ML IV PRN (15:54)
[2020-11-20] MEDS ORDERED: chlorproMAZINE INJ 50 MG in SODIUM CHLORIDE 0.9% 100 ML IV PRN (15:54)
[2020-11-20] MEDS ORDERED: chlorproMAZINE 25 MG TABLET PO PRN (15:54)
[2020-11-20] MEDS ORDERED: LACTULOSE 20 GM/30 ML UDCUP PO PRN (15:54)
[2020-11-20] MEDS ORDERED: diphenhydrAMINE CAP 25 MG CAPSULE PO PRN (15:54)
[2020-11-20] MEDS ORDERED: guaiFENesin 200 MG/10 ML UDCUP PO PRN (15:54)
[2020-11-20] MEDS ORDERED: traMADol 50 MG TABLET PO PRN (15:54)
[2020-11-20] MEDS ORDERED: PROMETHAZINE INJ 25 MG in SODIUM CHLORIDE 0.9% 50 ML IV PRN (15:54)
[2020-11-20] MEDS ORDERED: BENZTROPINE 2 MG/2 ML AMP IV PRN (15:54)
[2020-11-20] MEDS ORDERED: MYLANTA/LIDO VISC 2:1 300 ML BOTTLE SWISH/SPIT PRN (15:54)
[2020-11-20] MEDS: cefTRIAXone 1,000 MG in SODIUM CHLORIDE 0.9% 100 ML IV SCH (17:38)
[2020-11-20] MEDS: NICOTINE 21 MG/24 HR PATCH TRANSDERM SCH (18:44)
[2020-11-20] MEDS: ENOXAPARIN 40 MG/0.4 ML SYRINGE SUBCUT SCH (18:44)
[2020-11-20] MEDS: DEXT 5% NACL 0.9% KCL 20 MEQ 20 MEQ/1,000 ML BAG IV SCH (18:44)
[2020-11-20] MEDS: ALBUTEROL/IPRATROPIUM 3 ML NEB RESP TX SCH (20:45)
[2020-11-21] MEDS: ALBUTEROL/IPRATROPIUM 3 ML NEB RESP TX SCH ×4 (00:39→19:02)
[2020-11-21 05:15] LABS: Alanine Aminotransferase < 6 U/L (13-56); Alkaline Phosphatase 94 U/L (45-117); Aspartate Amino Transferase 9 U/L (0-37); Blood Urea Nitrogen 8 MG/DL (7-18); Calcium 7.9 MG/DL (8.5-10.1); Carbon Dioxide 30 MMOL/L (21-32); Estimated Glom Filtration Rate 107 ML/MIN; Glucose 143 MG/DL (74-106); Osmolality,Calculated 276.5 MOS/KG (273-304); Potassium 3.4 MMOL/L (3.5-5.1); Sodium 139 MMOL/L (136-145); Total Protein 5.7 G/DL (6.4-8.2)
[2020-11-21] MEDS ORDERED: POTASSIUM CHLORIDE 20 MEQ TABLET PO ONE (07:37)
[2020-11-21 08:03] LABS: Eosinophils % 0.2 % (0.00-10.9); Immature Granulocytes % 0.4 %; Immature Granulocytes Absolute 0.02 #
[2020-11-21 08:10] LABS: Basophils % 0.2 % (0.0-0.8); Hematocrit 34.6 VOL% (35.7-47.0); Hemoglobin 10.3 GM/DL (12.0-16.0); Lymphocytes # 0.5 10*3/uL (1.4-4.0); Lymphocytes % 10.5 % (21.3-54.2); Mean Corpuscular HGB Conc 29.8 GM/DL (32-36); Mean Platelet Volume 9.3 FL (9.6-12.0); Monocytes % 11.3 % (1.7-12.7); Neutrophils % 77.4 % (38.7-73.9); Platelet Count 421 T/CUMM (130-400); Red Blood Count 4.27 MC/CUMM (3.8-5.5); Red Cell Distribution Width 17.4 % (9.3-17.3)
[2020-11-21] MEDS ORDERED: HYDROCORTISONE 100 MG VIAL IV ONE (08:57)
[2020-11-21] MEDS: PARoxetine 10 MG TABLET PO SCH (09:17)
[2020-11-21] MEDS: DEXT 5% NACL 0.9% KCL 20 MEQ 20 MEQ/1,000 ML BAG IV SCH (09:19)
[2020-11-21] MEDS: NICOTINE 21 MG/24 HR PATCH TRANSDERM SCH (09:19)
[2020-11-21] MEDS: HYDROCORTISONE 100 MG VIAL IV SCH ×2 (09:52→21:23)
[2020-11-21] MEDS: ENOXAPARIN 40 MG/0.4 ML SYRINGE SUBCUT SCH (16:54)
[2020-11-21] MEDS: cefTRIAXone 1,000 MG in SODIUM CHLORIDE 0.9% 100 ML IV SCH (16:54)
[2020-11-22] MEDS: ALBUTEROL/IPRATROPIUM 3 ML NEB RESP TX SCH ×3 (00:57→11:40)
[2020-11-22] MEDS: DEXT 5% NACL 0.9% KCL 20 MEQ 20 MEQ/1,000 ML BAG IV SCH ×2 (01:04→13:47)
[2020-11-22 06:48] LABS: Basophils % 0.5 % (0.0-0.8); Hematocrit 32.3 VOL% (35.7-47.0); Hemoglobin 9.8 GM/DL (12.0-16.0); Immature Granulocytes % 0.3 %; Immature Granulocytes Absolute 0.01 #; Lymphocytes # 0.4 10*3/uL (1.4-4.0); Lymphocytes % 10.7 % (21.3-54.2); Mean Corpuscular HGB Conc 30.3 GM/DL (32-36); Mean Corpuscular Volume 80.8 FL (87-102); Mean Platelet Volume 9.1 FL (9.6-12.0); Monocytes % 6.3 % (1.7-12.7); Neutrophils % 82.2 % (38.7-73.9); Platelet Count 372 T/CUMM (130-400); Red Cell Distribution Width 17.1 % (9.3-17.3); White Blood Count 3.8 T/CUMM (4-12)
[2020-11-22 07:24] LABS: Osmolality,Calculated 279.4 MOS/KG (273-304); Potassium 4.1 MMOL/L (3.5-5.1)
[2020-11-22] MEDS ORDERED: PANTOPRAZOLE 40 MG TABLET PO SCH (09:00)
[2020-11-22] MEDS ORDERED: predniSONE 10 MG TABLET PO SCH (09:00)
[2020-11-22] MEDS: NICOTINE 21 MG/24 HR PATCH TRANSDERM SCH (09:18)
[2020-11-22] MEDS: PARoxetine 10 MG TABLET PO SCH (09:21)
[2020-11-22 12:25] VITALS: BP 158/77
[2020-11-22] MEDS ORDERED: predniSONE 5 MG TABLET PO SCH (21:00)
== END 2020-11-22 16:50 | disposition home or self-care (01) ==
LOC: N.ED 08:35 → N.EDINP 08:35 → SUATTDRO 14:34 → N.4E 14:48
PROVIDERS: ADMIT Hospitalist; ATTEND Internal Medicine

== ENCOUNTER 2020-11-24 19:38 | Observation (INO) ==
[2020-11-24 20:21] LABS: PT Patient Result 11.5 SECS (10.5-12.0); Partial Thromboplastin Time 26.2 SECS (23.9-33.8)
[2020-11-24 20:28] LABS: Alanine Aminotransferase 12 U/L (13-56); Albumin 2.5 G/DL (3.4-5.0); Alkaline Phosphatase 107 U/L (45-117); Aspartate Amino Transferase 10 U/L (0-37); Bilirubin,Total < 0.39 MG/DL (0.2-1.0); Blood Urea Nitrogen 9 MG/DL (7-18); Calcium 8.2 MG/DL (8.5-10.1); Carbon Dioxide 29 MMOL/L (21-32); Estimated Glom Filtration Rate 140 ML/MIN; Glucose 97 MG/DL (74-106); Osmolality,Calculated 271.8 MOS/KG (273-304); Potassium 3.8 MMOL/L (3.5-5.1); Sodium 137 MMOL/L (136-145); Total Protein 6.1 G/DL (6.4-8.2)
[2020-11-24 20:29] LABS: Basophils % 0.3 % (0.0-0.8); Hematocrit 42.8 VOL% (35.7-47.0); Hemoglobin 12.6 GM/DL (12.0-16.0); Immature Granulocytes % 0.5 %; Immature Granulocytes Absolute 0.04 #; Lymphocytes # 0.6 10*3/uL (1.4-4.0); Lymphocytes % 8.4 % (21.3-54.2); Mean Corpuscular HGB Conc 29.4 GM/DL (32-36); Mean Platelet Volume 9.1 FL (9.6-12.0); Monocytes % 8.3 % (1.7-12.7); Neutrophils % 82.5 % (38.7-73.9); Platelet Count 511 T/CUMM (130-400); Red Blood Count 5.42 MC/CUMM (3.8-5.5); Red Cell Distribution Width 17.3 % (9.3-17.3); White Blood Count 7.5 T/CUMM (4-12)
[2020-11-24] MEDS ORDERED: methylPREDNISolone SOD SUC 125 MG/2 ML VIAL IV STA (20:46)
[2020-11-24 21:07] LABS: ABG Base Excess 6.2 MMOL/L (-2.5-2.5); ABG HCO3 32.3 MMOL/L (20-26); ABG Oxygen Saturation 97.1 % (95-100); ABG PCO2 53.1 MM HG (35-48); ABG PH 7.402 (7.35-7.45); ABG PO2 94.2 MM HG (80-95); ABG TCO2 33.9 MMOL/L (23-27); Allen Test Positive; Pt O2 Delivery Device CPAP
[2020-11-25] MEDS ORDERED: IBUPROFEN 800 MG TABLET PO PRN (02:14)
[2020-11-25] MEDS ORDERED: ALBUTEROL 2.5 MG/3 ML NEB RESP TX PRN (02:17)
[2020-11-25] MEDS ORDERED: ONDANSETRON ODT 4 MG TABLET PO PRN (02:23)
[2020-11-25] MEDS ORDERED: PROCHLORPERAZINE 5 MG TABLET PO PRN (03:32)
[2020-11-25] MEDS ORDERED: DEXTROSE 50% 25 GM/50 ML VIAL IV PRN (03:37)
[2020-11-25] MEDS ORDERED: GLUCAGON 1 MG VIAL IM PRN (03:37)
[2020-11-25] MEDS ORDERED: ACETAMINOPHEN 325 MG TABLET PO PRN (03:38)
[2020-11-25] MEDS ORDERED: MORPHINE 4 MG/1 ML VIAL IV PRN (03:38)
[2020-11-25] MEDS ORDERED: ONDANSETRON 4 MG/2 ML VIAL IV PRN (03:38)
[2020-11-25] MEDS ORDERED: NICOTINE 21 MG/24 HR PATCH TRANSDERM PRN (03:38)
[2020-11-25] MEDS: cephALEXin 500 MG CAPSULE PO SCH ×3 (03:53→15:55)
[2020-11-25 05:23] LABS: Basophils % 0.2 % (0.0-0.8); Hematocrit 39.7 VOL% (35.7-47.0); Hemoglobin 12.1 GM/DL (12.0-16.0); Immature Granulocytes % 0.2 %; Immature Granulocytes Absolute 0.01 #; Lymphocytes # 0.3 10*3/uL (1.4-4.0); Mean Corpuscular HGB Conc 30.5 GM/DL (32-36); Mean Corpuscular Volume 78.5 FL (87-102); Monocytes % 1.3 % (1.7-12.7); Neutrophils % 93.3 % (38.7-73.9); Platelet Count 417 T/CUMM (130-400); Red Blood Count 5.06 MC/CUMM (3.8-5.5); Red Cell Distribution Width 17.5 % (9.3-17.3); White Blood Count 5.4 T/CUMM (4-12)
[2020-11-25 05:51] LABS: Alanine Aminotransferase < 9 U/L (13-56); Albumin 2.3 G/DL (3.4-5.0); Alkaline Phosphatase 101 U/L (45-117); Aspartate Amino Transferase 6 U/L (0-37); Blood Urea Nitrogen 13 MG/DL (7-18); Calcium 8.6 MG/DL (8.5-10.1); Carbon Dioxide 33 MMOL/L (21-32); Estimated Glom Filtration Rate 112 ML/MIN; Glucose 176 MG/DL (74-106); Osmolality,Calculated 278.7 MOS/KG (273-304); Potassium 3.9 MMOL/L (3.5-5.1); Sodium 138 MMOL/L (136-145); Total Protein 6.5 G/DL (6.4-8.2)
[2020-11-25 05:55] LABS: Lymphocytes 6 % (20-55); Segmented Neutrophils 94 % (50-85); Total Cells Counted 100
[2020-11-25 05:56] LABS: Hypochromasia 1+; Microcytosis 1+; Platelet Estimate Adequate
[2020-11-25] MEDS: ALBUTEROL/IPRATROPIUM 3 ML NEB RESP TX SCH ×3 (07:58→20:07)
[2020-11-25] MEDS ORDERED: predniSONE 10 MG TABLET PO SCH (09:00)
[2020-11-25] MEDS: ENOXAPARIN 40 MG/0.4 ML SYRINGE SUBCUT SCH (09:23)
[2020-11-25] MEDS: PARoxetine 10 MG TABLET PO SCH (09:23)
[2020-11-25] MEDS: methylPREDNISolone SOD SUC 40 MG/1 ML VIAL IV SCH ×3 (09:24→23:03)
[2020-11-25] MEDS: DOCUSATE SODIUM 100 MG CAPSULE PO PRN (09:24)
[2020-11-25] MEDS ORDERED: predniSONE 5 MG TABLET PO SCH (21:00)
[2020-11-25] MEDS: LORazepam 0.5 MG TABLET PO PRN (21:06)
[2020-11-25] MEDS: BUDESONIDE/FORMOTEROL 160-4.5 INHALER 6 GM INH SCH (21:06)
[2020-11-26] MEDS: ALBUTEROL/IPRATROPIUM 3 ML NEB RESP TX SCH ×4 (02:02→19:27)
[2020-11-26] MEDS: cephALEXin 500 MG CAPSULE PO SCH ×2 (03:29→15:22)
[2020-11-26 04:54] LABS: Hematocrit 37.5 VOL% (35.7-47.0); Hemoglobin 11.2 GM/DL (12.0-16.0); Immature Granulocytes % 0.4 %; Immature Granulocytes Absolute 0.03 #; Lymphocytes # 0.3 10*3/uL (1.4-4.0); Lymphocytes % 3.7 % (21.3-54.2); Mean Corpuscular HGB Conc 29.9 GM/DL (32-36); Mean Corpuscular Volume 78.8 FL (87-102); Mean Platelet Volume 9.1 FL (9.6-12.0); Monocytes % 2.6 % (1.7-12.7); Neutrophils % 93.3 % (38.7-73.9); Platelet Count 451 T/CUMM (130-400); Red Blood Count 4.76 MC/CUMM (3.8-5.5); Red Cell Distribution Width 17.3 % (9.3-17.3); White Blood Count 7.6 T/CUMM (4-12)
[2020-11-26 05:05] LABS: Alanine Aminotransferase < 9 U/L (13-56); Albumin 2.2 G/DL (3.4-5.0); Alkaline Phosphatase 89 U/L (45-117); Aspartate Amino Transferase 8 U/L (0-37); Bilirubin,Total < 0.39 MG/DL (0.2-1.0); Blood Urea Nitrogen 26 MG/DL (7-18); Calcium 8.5 MG/DL (8.5-10.1); Carbon Dioxide 32 MMOL/L (21-32); Estimated Glom Filtration Rate 112 ML/MIN; Glucose 183 MG/DL (74-106); Osmolality,Calculated 288.4 MOS/KG (273-304); Potassium 3.4 MMOL/L (3.5-5.1); Sodium 140 MMOL/L (136-145); Total Protein 6.1 G/DL (6.4-8.2)
[2020-11-26 08:23] LABS: Giant Platelets Few; Lymphocytes 4 % (20-55); Platelet Estimate Increased; Segmented Neutrophils 93 % (50-85); Total Cells Counted 100
[2020-11-26] MEDS: ENOXAPARIN 40 MG/0.4 ML SYRINGE SUBCUT SCH (09:00)
[2020-11-26] MEDS: BUDESONIDE/FORMOTEROL 160-4.5 INHALER 6 GM INH SCH ×2 (09:00→21:58)
[2020-11-26] MEDS: methylPREDNISolone SOD SUC 40 MG/1 ML VIAL IV SCH ×3 (09:00→23:08)
[2020-11-26] MEDS: PARoxetine 10 MG TABLET PO SCH (09:00)
[2020-11-26] MEDS: POTASSIUM CHLORIDE 20 MEQ TABLET PO PRN ×3 (09:06→13:13)
[2020-11-26] MEDS: LORazepam 0.5 MG TABLET PO PRN (21:57)
[2020-11-26] MEDS: DOCUSATE SODIUM 100 MG CAPSULE PO PRN (21:57)
[2020-11-27] MEDS: ALBUTEROL/IPRATROPIUM 3 ML NEB RESP TX SCH ×3 (00:35→12:18)
[2020-11-27] MEDS: cephALEXin 500 MG CAPSULE PO SCH (03:30)
[2020-11-27 03:44] LABS: Hematocrit 36.2 VOL% (35.7-47.0); Hemoglobin 10.8 GM/DL (12.0-16.0); Immature Granulocytes Absolute 0.09 #; Lymphocytes # 0.3 10*3/uL (1.4-4.0); Lymphocytes % 3.3 % (21.3-54.2); Mean Corpuscular HGB Conc 29.8 GM/DL (32-36); Mean Corpuscular Volume 79.7 FL (87-102); Mean Platelet Volume 8.6 FL (9.6-12.0); Monocytes % 2.4 % (1.7-12.7); Neutrophils % 93.3 % (38.7-73.9); Platelet Count 433 T/CUMM (130-400); Red Blood Count 4.54 MC/CUMM (3.8-5.5); Red Cell Distribution Width 17.4 % (9.3-17.3); White Blood Count 9.3 T/CUMM (4-12)
[2020-11-27 04:00] LABS: Calcium 8.5 MG/DL (8.5-10.1); Osmolality,Calculated 282.5 MOS/KG (273-304); Potassium 4.1 MMOL/L (3.5-5.1)
[2020-11-27 04:25] LABS: Lymphocytes 2 % (20-55); Microcytosis 1+; Ovalocytes Few; Platelet Estimate Increased; Polychromasia Slight; Segmented Neutrophils 97 % (50-85); Total Cells Counted 100
[2020-11-27 04:27] LABS: Hypochromasia 1+
[2020-11-27] MEDS: ENOXAPARIN 40 MG/0.4 ML SYRINGE SUBCUT SCH (08:51)
[2020-11-27] MEDS: BUDESONIDE/FORMOTEROL 160-4.5 INHALER 6 GM INH SCH (08:51)
[2020-11-27] MEDS: PARoxetine 10 MG TABLET PO SCH (08:51)
[2020-11-27] MEDS: methylPREDNISolone SOD SUC 40 MG/1 ML VIAL IV SCH (08:51)
[2020-11-27 11:44] VITALS: BP 140/82
== END 2020-11-27 13:44 | disposition home or self-care (01) ==
LOC: EDUNIT# → EDBD → N.EDINP 19:38 → N.ED 19:38 → N.4E 11-25 03:29
PROVIDERS: ADMIT Internal Medicine; ATTEND Internal Medicine

== ENCOUNTER 2021-01-25 15:44 | Inpatient (IN) ==
[2021-01-25] MEDS ORDERED: SODIUM CHLORIDE 0.9% 1,000 ML IV STA (16:17)
[2021-01-25 16:41] LABS: ABG Base Excess 8.4 MMOL/L (-2.5-2.5); ABG HCO3 32.1 MMOL/L (20-26); ABG Oxygen Saturation 96.5 % (95-100); ABG PCO2 42.2 MM HG (35-48); ABG PH 7.495 (7.35-7.45); ABG PO2 78.2 MM HG (80-95); ABG TCO2 29.6 MMOL/L (23-27)
[2021-01-25 17:01] LABS: INR 1.1; PT Patient Result 11.8 SECS (10.5-12.0)
[2021-01-25 17:06] LABS: Basophils % 0.2 % (0.0-0.8); Eosinophils % 0.1 % (0.00-10.9); Hematocrit 33.3 VOL% (35.7-47.0); Immature Granulocytes % 1.2 %; Immature Granulocytes Absolute 0.11 #; Lymphocytes # 1.6 10*3/uL (1.4-4.0); Lymphocytes % 17.8 % (21.3-54.2); Mean Platelet Volume 8.3 FL (9.6-12.0); Monocytes % 6.6 % (1.7-12.7); Neutrophils % 74.1 % (38.7-73.9); Platelet Count 573 T/CUMM (130-400); Red Blood Count 4.16 MC/CUMM (3.8-5.5); Red Cell Distribution Width 20.4 % (9.3-17.3); White Blood Count 9.1 T/CUMM (4-12)
[2021-01-25 17:15] LABS: Bilirubin,Total 0.5 MG/DL (0.20-1.00); Osmolality,Calculated 274.7 MOS/KG (273-304); Potassium 3.1 MMOL/L (3.5-5.1); Total Protein 5.7 G/DL (6.4-8.2)
[2021-01-25] MEDS ORDERED: LEVOFLOXACIN INJ 750 MG/150 ML PREMIX IV STA (17:24)
[2021-01-25] MEDS ORDERED: POTASSIUM CHLORIDE 20 MEQ TABLET PO STA (17:28)
[2021-01-25 17:43] LABS: Bilirubin,Urine Negative (Negative); Blood, Urine Negative (Negative); Glucose,Urine (UA) Negative (Negative); Hyaline Casts,Urine 8 /LPF (0-3); Ketones,Urine Negative (Negative); Mucus,Urine Many /LPF (Occasional); Nitrite,Urine Negative (Negative); Protein,Urine 30 MG/DL; RBC,Urine 4 /HPF (0-4); Squamous Epithelial Cell,Urine Occasional /HPF (0-10); Urine Appearance Slightly Hazy (Clear); Urine Color Amber (Yellow); Urine Specific Gravity 1.019 (1.001-1.035)
[2021-01-25] MEDS ORDERED: DEXTROSE 50% 25 GM/50 ML VIAL IV PRN (18:47)
[2021-01-25] MEDS ORDERED: ONDANSETRON 4 MG/2 ML VIAL IV PRN (18:47)
[2021-01-25] MEDS ORDERED: GLUCAGON 1 MG VIAL IM PRN (18:47)
[2021-01-25] MEDS: ENOXAPARIN 40 MG/0.4 ML SYRINGE SUBCUT SCH (19:11)
[2021-01-25] MEDS: methylPREDNISolone SOD SUC 40 MG/1 ML VIAL IV SCH (19:13)
[2021-01-25] MEDS: ALBUTEROL/IPRATROPIUM 3 ML NEB RESP TX SCH (19:50)
[2021-01-26] MEDS: methylPREDNISolone SOD SUC 40 MG/1 ML VIAL IV SCH ×3 (02:06→18:00)
[2021-01-26] MEDS: ALBUTEROL/IPRATROPIUM 3 ML NEB RESP TX SCH ×4 (02:40→19:31)
[2021-01-26 06:05] LABS: Calcium 8.4 MG/DL (8.5-10.1); Osmolality,Calculated 274.7 MOS/KG (273-304); Potassium 3.7 MMOL/L (3.5-5.1); Risk Ratio 3.02; VLDL Cholesterol 15.4 MG/DL
[2021-01-26 06:49] LABS: Basophils % 0.2 % (0.0-0.8); Hematocrit 31.8 VOL% (35.7-47.0); Hemoglobin 9.4 GM/DL (12.0-16.0); Immature Granulocytes % 1.1 %; Immature Granulocytes Absolute 0.05 #; Lymphocytes # 0.6 10*3/uL (1.4-4.0); Lymphocytes % 12.4 % (21.3-54.2); Mean Corpuscular HGB Conc 29.6 GM/DL (32-36); Mean Corpuscular Volume 82.6 FL (87-102); Mean Platelet Volume 8.4 FL (9.6-12.0); Monocytes % 2.2 % (1.7-12.7); Neutrophils % 84.1 % (38.7-73.9); Platelet Count 542 T/CUMM (130-400); Red Blood Count 3.85 MC/CUMM (3.8-5.5); Red Cell Distribution Width 20.4 % (9.3-17.3); White Blood Count 4.5 T/CUMM (4-12)
[2021-01-26] MEDS: PANTOPRAZOLE 40 MG TABLET PO SCH (09:25)
[2021-01-26] MEDS: PARoxetine 20 MG TABLET PO SCH (09:25)
[2021-01-26] MEDS ORDERED: NICOTINE 21 MG/24 HR PATCH TRANSDERM PRN (12:14)
[2021-01-26] MEDS: ENOXAPARIN 40 MG/0.4 ML SYRINGE SUBCUT SCH (18:21)
[2021-01-26] MEDS ORDERED: LEVOFLOXACIN INJ 750 MG/150 ML PREMIX IV SCH (18:51)
[2021-01-27] MEDS: ALBUTEROL/IPRATROPIUM 3 ML NEB RESP TX SCH ×4 (00:02→19:15)
[2021-01-27] MEDS: methylPREDNISolone SOD SUC 40 MG/1 ML VIAL IV SCH ×3 (03:24→22:14)
[2021-01-27 05:08] LABS: Calcium 8.4 MG/DL (8.5-10.1); Osmolality,Calculated 282.4 MOS/KG (273-304); Potassium 3.9 MMOL/L (3.5-5.1)
[2021-01-27 05:42] LABS: Basophils % 0.1 % (0.0-0.8); Hematocrit 31.2 VOL% (35.7-47.0); Hemoglobin 9.2 GM/DL (12.0-16.0); Immature Granulocytes % 0.9 %; Immature Granulocytes Absolute 0.06 #; Lymphocytes # 0.8 10*3/uL (1.4-4.0); Lymphocytes % 12.1 % (21.3-54.2); Mean Corpuscular HGB Conc 29.5 GM/DL (32-36); Mean Corpuscular Volume 82.1 FL (87-102); Mean Platelet Volume 8.5 FL (9.6-12.0); Monocytes % 4.3 % (1.7-12.7); Neutrophils % 82.6 % (38.7-73.9); Platelet Count 537 T/CUMM (130-400); Red Cell Distribution Width 20.2 % (9.3-17.3)
[2021-01-27 06:10] LABS: Anisocytosis 2+; Ovalocytes Few; Platelet Estimate Increased
[2021-01-27] MEDS: PARoxetine 20 MG TABLET PO SCH (09:45)
[2021-01-27] MEDS: PANTOPRAZOLE 40 MG TABLET PO SCH (09:45)
[2021-01-27] MEDS: ceFAZolin 2,000 MG/50 ML DUPLEX IV SCH ×2 (14:56→22:14)
[2021-01-27] MEDS: AZITHROMYCIN INJ 500 MG in SODIUM CHLORIDE 0.9% 250 ML IV SCH (15:31)
[2021-01-27] MEDS: ENOXAPARIN 40 MG/0.4 ML SYRINGE SUBCUT SCH (22:14)
[2021-01-28] MEDS: ALBUTEROL/IPRATROPIUM 3 ML NEB RESP TX SCH ×4 (00:40→21:40)
[2021-01-28] MEDS: methylPREDNISolone SOD SUC 40 MG/1 ML VIAL IV SCH ×3 (03:54→18:11)
[2021-01-28] MEDS: ceFAZolin 2,000 MG/50 ML DUPLEX IV SCH (03:54)
[2021-01-28] MEDS ORDERED: ALBUTEROL/IPRATROPIUM 3 ML NEB RESP TX ONE (04:18)
[2021-01-28] MEDS: guaiFENesin/DM ER 600-30 MG TABLET PO SCH ×3 (04:20→20:57)
[2021-01-28 07:34] LABS: Basophils % 0.1 % (0.0-0.8); Hematocrit 33.5 VOL% (35.7-47.0); Immature Granulocytes % 0.8 %; Immature Granulocytes Absolute 0.08 #; Lymphocytes # 0.3 10*3/uL (1.4-4.0); Lymphocytes % 3.4 % (21.3-54.2); Mean Corpuscular HGB Conc 28.7 GM/DL (32-36); Mean Corpuscular Volume 82.5 FL (87-102); Mean Platelet Volume 8.1 FL (9.6-12.0); Monocytes % 2.8 % (1.7-12.7); Neutrophils % 92.9 % (38.7-73.9); Platelet Count 526 T/CUMM (130-400); Red Blood Count 4.06 MC/CUMM (3.8-5.5); Red Cell Distribution Width 20.4 % (9.3-17.3); White Blood Count 9.4 T/CUMM (4-12)
[2021-01-28 07:36] LABS: Hemoglobin 9.6 GM/DL (12.0-16.0)
[2021-01-28 07:42] LABS: Hypochromasia Slight; Lymphocytes 2 % (20-55); Microcytosis Slight; Platelet Estimate Increased; Segmented Neutrophils 97 % (50-85); Total Cells Counted 100
[2021-01-28 07:57] LABS: Calcium 8.1 MG/DL (8.5-10.1); Osmolality,Calculated 283.3 MOS/KG (273-304); Potassium 3.2 MMOL/L (3.5-5.1)
[2021-01-28] MEDS: PARoxetine 20 MG TABLET PO SCH (09:16)
[2021-01-28] MEDS: PANTOPRAZOLE 40 MG TABLET PO SCH (09:17)
[2021-01-28] MEDS ORDERED: POTASSIUM CHLORIDE 20 MEQ TABLET PO ONE (09:59)
[2021-01-28] MEDS: PIPERACILLIN/TAZOBACTAM 3,375 MG in SODIUM CHLORIDE 0.9% 100 ML IV SCH ×2 (12:32→20:57)
[2021-01-28] MEDS: AZITHROMYCIN INJ 500 MG in SODIUM CHLORIDE 0.9% 250 ML IV SCH (16:21)
[2021-01-28] MEDS: VANCOMYCIN INJ 1,000 MG in SODIUM CHLORIDE 0.9% 250 ML IV SCH (17:26)
[2021-01-28] MEDS: ENOXAPARIN 40 MG/0.4 ML SYRINGE SUBCUT SCH (18:11)
[2021-01-29] MEDS: methylPREDNISolone SOD SUC 40 MG/1 ML VIAL IV SCH ×3 (04:06→20:20)
[2021-01-29] MEDS: VANCOMYCIN INJ 1,000 MG in SODIUM CHLORIDE 0.9% 250 ML IV SCH (04:06)
[2021-01-29] MEDS: PIPERACILLIN/TAZOBACTAM 3,375 MG in SODIUM CHLORIDE 0.9% 100 ML IV SCH ×2 (05:33→15:52)
[2021-01-29] MEDS: ALBUTEROL/IPRATROPIUM 3 ML NEB RESP TX SCH ×4 (06:53→20:28)
[2021-01-29] MEDS: PARoxetine 20 MG TABLET PO SCH (09:17)
[2021-01-29] MEDS: PANTOPRAZOLE 40 MG TABLET PO SCH (09:17)
[2021-01-29] MEDS: guaiFENesin/DM ER 600-30 MG TABLET PO SCH ×2 (09:17→20:19)
[2021-01-29] MEDS: AZITHROMYCIN INJ 500 MG in SODIUM CHLORIDE 0.9% 250 ML IV SCH (13:10)
[2021-01-29] MEDS ORDERED: cefTRIAXone 1,000 MG in SODIUM CHLORIDE 0.9% 100 ML IV SCH (17:00)
[2021-01-29] MEDS ORDERED: POTASSIUM CHLORIDE 20 MEQ TABLET PO PRN (17:49)
[2021-01-29] MEDS: SULFAMETH/TRIMETH INJ 300 MG in DEXTROSE 5% 500 ML IV SCH (19:44)
[2021-01-29] MEDS: ENOXAPARIN 40 MG/0.4 ML SYRINGE SUBCUT SCH (20:20)
[2021-01-30] MEDS: SULFAMETH/TRIMETH INJ 300 MG in DEXTROSE 5% 500 ML IV SCH ×2 (00:17→05:54)
[2021-01-30] MEDS: methylPREDNISolone SOD SUC 40 MG/1 ML VIAL IV SCH (03:54)
[2021-01-30] MEDS: ALBUTEROL/IPRATROPIUM 3 ML NEB RESP TX SCH ×3 (04:31→13:05)
[2021-01-30 05:28] LABS: Basophils % 0.1 % (0.0-0.8); Hematocrit 30.5 VOL% (35.7-47.0); Hemoglobin 8.9 GM/DL (12.0-16.0); Immature Granulocytes % 1.7 %; Immature Granulocytes Absolute 0.14 #; Lymphocytes # 0.7 10*3/uL (1.4-4.0); Lymphocytes % 8.4 % (21.3-54.2); Mean Corpuscular HGB Conc 29.2 GM/DL (32-36); Mean Corpuscular Volume 81.8 FL (87-102); Mean Platelet Volume 8.3 FL (9.6-12.0); Monocytes % 3.9 % (1.7-12.7); Neutrophils % 85.9 % (38.7-73.9); Platelet Count 438 T/CUMM (130-400); Red Blood Count 3.73 MC/CUMM (3.8-5.5); Red Cell Distribution Width 20.1 % (9.3-17.3); White Blood Count 8.1 T/CUMM (4-12)
[2021-01-30 05:53] LABS: Osmolality,Calculated 276.8 MOS/KG (273-304)
[2021-01-30] MEDS: PARoxetine 20 MG TABLET PO SCH (08:43)
[2021-01-30] MEDS: PANTOPRAZOLE 40 MG TABLET PO SCH (08:43)
[2021-01-30] MEDS: guaiFENesin/DM ER 600-30 MG TABLET PO SCH (08:43)
[2021-01-30] MEDS ORDERED: methylPREDNISolone SOD SUC 40 MG/1 ML VIAL IV SCH (10:30)
[2021-01-30] MEDS ORDERED: MEROPENEM 500 MG in SODIUM CHLORIDE 0.9% 100 ML IV SCH (10:30)
[2021-01-30 13:24] VITALS: BP 132/78
== END 2021-01-30 15:10 | disposition home health service (06) | DRG 137 ==
LOC: EDUNIT# → EDBD → N.ED 15:44 → SUATTDRO 18:47 → N.EDINP 18:47 → N.TELES 20:43
PROVIDERS: ADMIT Internal Medicine; ATTEND Internal Medicine

== ENCOUNTER 2021-03-03 15:15 | Inpatient (IN) ==
[2021-03-03] MEDS ORDERED: methylPREDNISolone SOD SUC 40 MG/1 ML VIAL IV STA (16:30)
[2021-03-03] MEDS ORDERED: ALBUTEROL 2.5 MG/3 ML NEB RESP TX STA (16:30)
[2021-03-03] MEDS ORDERED: LACTATED RINGERS 1,000 ML IV ONE (16:34)
[2021-03-03 17:32] LABS: Basophils % 0.1 % (0.0-0.8); Hematocrit 23.4 VOL% (35.7-47.0); Immature Granulocytes % 1.7 %; Immature Granulocytes Absolute 0.14 #; Lymphocytes # 0.8 10*3/uL (1.4-4.0); Mean Corpuscular HGB Conc 29.9 GM/DL (32-36); Mean Corpuscular Volume 82.1 FL (87-102); Mean Platelet Volume 8.8 FL (9.6-12.0); Monocytes % 16.5 % (1.7-12.7); Neutrophils % 71.7 % (38.7-73.9); Platelet Count 559 T/CUMM (130-400); Red Blood Count 2.85 MC/CUMM (3.8-5.5); Red Cell Distribution Width 17.9 % (9.3-17.3); White Blood Count 8.4 T/CUMM (4-12)
[2021-03-03 17:40] LABS: Bilirubin,Urine Negative (Negative); Blood, Urine Negative (Negative); Glucose,Urine (UA) Negative (Negative); Hyaline Casts,Urine 4 /LPF (0-3); Ketones,Urine Negative (Negative); Nitrite,Urine Negative (Negative); Protein,Urine Negative; RBC,Urine 1 /HPF (0-4); Squamous Epithelial Cell,Urine Occasional /HPF (0-10); Urine Appearance CLEAR (Clear); Urine Color Yellow (Yellow); Urine Specific Gravity 1.013 (1.001-1.035); Urine Urobilinogen < 2.0 EU/DL (0.2-1.0)
[2021-03-03 17:56] LABS: Alanine Aminotransferase < 6 U/L (13-56); Albumin 2.3 G/DL (3.4-5.0); Alkaline Phosphatase 96 U/L (45-117); Aspartate Amino Transferase 10 U/L (0-37); Blood Urea Nitrogen 10 MG/DL (7-18); Calcium 7.7 MG/DL (8.5-10.1); Carbon Dioxide 27 MMOL/L (21-32); Estimated Glom Filtration Rate 113 ML/MIN; Glucose 100 MG/DL (74-106); Potassium 3.2 MMOL/L (3.5-5.1); Sodium 136 MMOL/L (136-145); Total Protein 5.5 G/DL (6.4-8.2)
[2021-03-03] MEDS ORDERED: PIPERACILLIN/TAZOBACTAM 3,375 MG in SODIUM CHLORIDE 0.9% 100 ML IV STA (18:12)
[2021-03-03 18:13] LABS: INR 1.1; PT Patient Result 12.3 SECS (10.5-12.0)
[2021-03-03] MEDS ORDERED: GLUCAGON 1 MG VIAL IM PRN (18:34)
[2021-03-03] MEDS ORDERED: DEXTROSE 50% 25 GM/50 ML VIAL IV PRN (18:34)
[2021-03-03] MEDS ORDERED: ONDANSETRON 4 MG/2 ML VIAL IV PRN (18:34)
[2021-03-03] MEDS ORDERED: DOCUSATE SODIUM 100 MG CAPSULE PO PRN (18:34)
[2021-03-03] MEDS ORDERED: SODIUM CHLORIDE 0.9% 1,000 ML IV PRN (18:42)
[2021-03-03 19:00] LABS: Lymphocytes 16 % (20-55); Metamyelocytes 1 %; Segmented Neutrophils 78 % (50-85); Total Cells Counted 100
[2021-03-03 19:01] LABS: Atypical Lymphocytes Few; Hypochromasia 1+; Microcytosis 2+; Ovalocytes 1+; Platelet Estimate Increased; Polychromasia Few
[2021-03-03] MEDS: ALBUTEROL 2.5 MG/3 ML NEB RESP TX SCH (19:25)
[2021-03-03] MEDS: SODIUM CHLORIDE 0.9% 1,000 ML IV SCH (20:50)
[2021-03-03] MEDS: INSULIN REGULAR 100 UNIT/ML SUBCUT SCH (20:51)
[2021-03-03] MEDS: BUDESONIDE/FORMOTEROL 160-4.5 INHALER 6 GM INH SCH (21:14)
[2021-03-03] MEDS: ENOXAPARIN 30 MG/0.3 ML SYRINGE SUBCUT SCH (21:17)
[2021-03-03] MEDS: methylPREDNISolone SOD SUC 40 MG/1 ML VIAL IV SCH (23:15)
[2021-03-04] MEDS: PIPERACILLIN/TAZOBACTAM 3,375 MG in SODIUM CHLORIDE 0.9% 100 ML IV SCH ×3 (01:23→17:37)
[2021-03-04] MEDS: ALBUTEROL 2.5 MG/3 ML NEB RESP TX SCH ×4 (01:52→19:57)
[2021-03-04 06:47] LABS: Hematocrit 32.5 VOL% (35.7-47.0); Hemoglobin 9.8 GM/DL (12.0-16.0); Immature Granulocytes % 1.3 %; Immature Granulocytes Absolute 0.06 #; Lymphocytes # 0.5 10*3/uL (1.4-4.0); Lymphocytes % 9.9 % (21.3-54.2); Mean Corpuscular HGB Conc 30.2 GM/DL (32-36); Mean Corpuscular Volume 82.5 FL (87-102); Mean Platelet Volume 8.4 FL (9.6-12.0); Monocytes % 3.7 % (1.7-12.7); Neutrophils % 85.1 % (38.7-73.9); Platelet Count 442 T/CUMM (130-400); Red Blood Count 3.94 MC/CUMM (3.8-5.5); Red Cell Distribution Width 17.2 % (9.3-17.3); White Blood Count 4.6 T/CUMM (4-12)
[2021-03-04 07:08] LABS: Calcium 8.1 MG/DL (8.5-10.1); Osmolality,Calculated 279.5 MOS/KG (273-304); Potassium 3.3 MMOL/L (3.5-5.1)
[2021-03-04] MEDS: methylPREDNISolone SOD SUC 40 MG/1 ML VIAL IV SCH ×2 (09:07→16:53)
[2021-03-04] MEDS: INSULIN REGULAR 100 UNIT/ML SUBCUT SCH ×4 (09:08→21:42)
[2021-03-04] MEDS: PANTOPRAZOLE 40 MG TABLET PO SCH (09:08)
[2021-03-04] MEDS: PARoxetine 10 MG TABLET PO SCH (09:08)
[2021-03-04] MEDS: BUDESONIDE/FORMOTEROL 160-4.5 INHALER 6 GM INH SCH ×2 (09:08→20:46)
[2021-03-04] MEDS: FUROSEMIDE 20 MG TABLET PO SCH (09:08)
[2021-03-04] MEDS: SODIUM CHLORIDE 0.9% 1,000 ML IV SCH (16:53)
[2021-03-04] MEDS: ENOXAPARIN 30 MG/0.3 ML SYRINGE SUBCUT SCH (20:45)
[2021-03-05] MEDS: methylPREDNISolone SOD SUC 40 MG/1 ML VIAL IV SCH ×3 (00:28→16:24)
[2021-03-05] MEDS: ALBUTEROL 2.5 MG/3 ML NEB RESP TX SCH ×3 (00:35→12:57)
[2021-03-05] MEDS: PIPERACILLIN/TAZOBACTAM 3,375 MG in SODIUM CHLORIDE 0.9% 100 ML IV SCH ×3 (02:25→14:40)
[2021-03-05 05:30] LABS: Hematocrit 30.4 VOL% (35.7-47.0); Hemoglobin 9.1 GM/DL (12.0-16.0); Immature Granulocytes % 1.1 %; Immature Granulocytes Absolute 0.07 #; Lymphocytes # 0.3 10*3/uL (1.4-4.0); Lymphocytes % 5.1 % (21.3-54.2); Mean Corpuscular HGB Conc 29.9 GM/DL (32-36); Mean Corpuscular Volume 82.4 FL (87-102); Mean Platelet Volume 8.8 FL (9.6-12.0); Monocytes % 5.4 % (1.7-12.7); Neutrophils % 88.4 % (38.7-73.9); Platelet Count 449 T/CUMM (130-400); Red Blood Count 3.69 MC/CUMM (3.8-5.5); Red Cell Distribution Width 17.1 % (9.3-17.3); White Blood Count 6.1 T/CUMM (4-12)
[2021-03-05 06:04] LABS: % Iron Saturation 22.8 % (18-50); Calcium 8.1 MG/DL (8.5-10.1); Ferritin 356.1 ng/mL (8-252); Osmolality,Calculated 287.1 MOS/KG (273-304); Potassium 3.1 MMOL/L (3.5-5.1)
[2021-03-05 06:32] LABS: Folate 4.11 NG/ML (5.38-24.0)
[2021-03-05] MEDS: INSULIN REGULAR 100 UNIT/ML SUBCUT SCH ×3 (08:36→16:21)
[2021-03-05] MEDS: SODIUM CHLORIDE 0.9% 1,000 ML IV SCH (08:36)
[2021-03-05] MEDS: PARoxetine 10 MG TABLET PO SCH (09:04)
[2021-03-05] MEDS: BUDESONIDE/FORMOTEROL 160-4.5 INHALER 6 GM INH SCH (09:04)
[2021-03-05] MEDS: FUROSEMIDE 20 MG TABLET PO SCH (09:04)
[2021-03-05] MEDS: PANTOPRAZOLE 40 MG TABLET PO SCH (09:04)
[2021-03-05 15:53] VITALS: BP 146/46
== END 2021-03-05 17:45 | disposition home or self-care (01) | DRG 140 ==
LOC: EDUNIT# → EDBD → N.ED 15:15 → SUATTDRO 18:34 → N.EDINP 18:34 → N.5E 19:55
PROVIDERS: ADMIT Internal Medicine; ATTEND Internal Medicine

== ENCOUNTER 2021-06-30 20:15 | Inpatient (IN) ==
[2021-06-30] MEDS ORDERED: SODIUM CHLORIDE 0.9% 1,000 ML IV STA (20:26)
[2021-06-30] MEDS ORDERED: ONDANSETRON 4 MG/2 ML VIAL IV STA (20:26)
[2021-06-30 20:59] LABS: Basophils % 0.3 % (0.0-0.8); Eosinophils % 0.2 % (0.00-10.9); Hematocrit 36.7 VOL% (35.7-47.0); Immature Granulocytes % 0.3 %; Immature Granulocytes Absolute 0.02 #; Lymphocytes # 0.4 10*3/uL (1.4-4.0); Lymphocytes % 6.4 % (21.3-54.2); Mean Corpuscular Volume 85.7 FL (87-102); Mean Platelet Volume 9.1 FL (9.6-12.0); Neutrophils % 90.8 % (38.7-73.9); Platelet Count 378 T/CUMM (130-400); Red Blood Count 4.28 MC/CUMM (3.8-5.5); Red Cell Distribution Width 18.5 % (9.3-17.3); White Blood Count 6.1 T/CUMM (4-12)
[2021-06-30 21:18] LABS: Bacteria,Urine Occasional /HPF (Few); Bilirubin,Urine Negative (Negative); Blood, Urine Small mg/dL (Negative); Calcium Oxalate Crystals,Urine Occasional /HPF (Few); Glucose,Urine (UA) Negative (Negative); Hyaline Casts,Urine 1 /LPF (0-3); Ketones,Urine Negative (Negative); Mucus,Urine Occasional /LPF (Occasional); Nitrite,Urine Negative (Negative); Protein,Urine 100 MG/DL; RBC,Urine 2 /HPF (0-4); Squamous Epithelial Cell,Urine Occasional /HPF (0-10); Urine Appearance CLOUDY (Clear); Urine Color Amber (Yellow); Urine Specific Gravity 1.014 (1.001-1.035); Urine Urobilinogen < 2.0 EU/DL (<2.0)
[2021-06-30 21:18] LABS: Alanine Aminotransferase < 9 U/L (13-56); Albumin 2.6 G/DL (3.4-5.0); Alkaline Phosphatase 97 U/L (45-117); Aspartate Amino Transferase 5 U/L (0-37); Blood Urea Nitrogen 12 MG/DL (7-18); Calcium 8.5 MG/DL (8.5-10.1); Carbon Dioxide 25 MMOL/L (21-32); Estimated Glom Filtration Rate 134 ML/MIN; Glucose 110 MG/DL (74-106); Osmolality,Calculated 277.5 MOS/KG (273-304); Sodium 139 MMOL/L (136-145); Total Protein 6.6 G/DL (6.4-8.2)
[2021-06-30] MEDS ORDERED: cefTRIAXone 1,000 MG in SODIUM CHLORIDE 0.9% 100 ML IV STA (21:24)
[2021-06-30 21:26] LABS: Hypochromia Slight; Lymphocytes 5 % (20-55); Segmented Neutrophils 94 % (50-85); Total Cells Counted 100
[2021-06-30 21:27] LABS: Microcytosis Slight
[2021-06-30 21:28] LABS: Platelet Estimate Adequate; Spherocytes Slight
[2021-06-30] MEDS ORDERED: ALBUTEROL/IPRATROPIUM 3 ML NEB RESP TX STA (21:36)
[2021-06-30] MEDS ORDERED: methylPREDNISolone SOD SUC 125 MG/2 ML VIAL IV STA (21:36)
[2021-06-30] MEDS ORDERED: NICOTINE 21 MG/24 HR PATCH TRANSDERM PRN (21:38)
[2021-06-30] MEDS ORDERED: ZALEPLON 5 MG CAPSULE PO PRN (21:38)
[2021-06-30] MEDS ORDERED: DOCUSATE SODIUM 100 MG CAPSULE PO PRN (21:38)
[2021-06-30] MEDS ORDERED: diphenhydrAMINE CAP 25 MG CAPSULE PO PRN (21:38)
[2021-06-30] MEDS ORDERED: ACETAMINOPHEN 325 MG TABLET PO PRN (21:38)
[2021-06-30] MEDS ORDERED: hydrALAZINE 20 MG/1 ML VIAL IV PRN (21:38)
[2021-06-30] MEDS ORDERED: guaiFENesin/DM ER 600-30 MG TABLET PO PRN (21:38)
[2021-06-30] MEDS ORDERED: DEXTROSE 10% 250 ML BAG IV PRN (21:38)
[2021-06-30] MEDS ORDERED: ONDANSETRON 4 MG/2 ML VIAL IV PRN (21:38)
[2021-06-30] MEDS ORDERED: GLUCAGON 1 MG VIAL IM PRN (21:38)
[2021-06-30] MEDS ORDERED: MORPHINE 2 MG/1 ML SYRINGE IV PRN (21:38)
[2021-07-01] MEDS: ALBUTEROL/IPRATROPIUM 3 ML NEB RESP TX SCH ×4 (01:02→19:27)
[2021-07-01 04:31] LABS: Calcium 8.4 MG/DL (8.5-10.1); Osmolality,Calculated 274.8 MOS/KG (273-304); Potassium 4.1 MMOL/L (3.5-5.1)
[2021-07-01 05:24] LABS: Basophils % 0.2 % (0.0-0.8); Immature Granulocytes % 0.4 %; Immature Granulocytes Absolute 0.02 #; Lymphocytes # 0.2 10*3/uL (1.4-4.0); Mean Corpuscular HGB Conc 29.7 GM/DL (32-36); Mean Corpuscular Volume 85.8 FL (87-102); Mean Platelet Volume 9.3 FL (9.6-12.0); Monocytes % 0.2 % (1.7-12.7); Neutrophils % 95.2 % (38.7-73.9); Platelet Count 387 T/CUMM (130-400); Red Blood Count 4.43 MC/CUMM (3.8-5.5); Red Cell Distribution Width 18.2 % (9.3-17.3)
[2021-07-01 05:29] LABS: Hemoglobin 11.3 GM/DL (12.0-16.0)
[2021-07-01 05:35] LABS: Lymphocytes 2 % (20-55); Platelet Estimate Normal; Segmented Neutrophils 97 % (50-85); Total Cells Counted 100
[2021-07-01] MEDS: cefTRIAXone 1,000 MG in SODIUM CHLORIDE 0.9% 100 ML IV SCH (08:08)
[2021-07-01] MEDS: HEPARIN 5,000 UNIT/1 ML VIAL SUBCUT SCH ×2 (09:10→20:58)
[2021-07-01] MEDS: PANTOPRAZOLE 40 MG TABLET PO SCH (09:10)
[2021-07-01] MEDS: POLYETHYLENE GLYCOL POWDER 17 GM PACK PO SCH (14:16)
[2021-07-02] MEDS: ALBUTEROL/IPRATROPIUM 3 ML NEB RESP TX SCH ×2 (01:29→07:38)
[2021-07-02 05:03] LABS: Basophils % 0.2 % (0.0-0.8); Eosinophils % 0.2 % (0.00-10.9); Hematocrit 34.7 VOL% (35.7-47.0); Hemoglobin 10.3 GM/DL (12.0-16.0); Immature Granulocytes % 0.5 %; Immature Granulocytes Absolute 0.03 #; Lymphocytes # 0.9 10*3/uL (1.4-4.0); Mean Corpuscular HGB Conc 29.7 GM/DL (32-36); Mean Corpuscular Volume 86.3 FL (87-102); Mean Platelet Volume 9.1 FL (9.6-12.0); Monocytes % 4.1 % (1.7-12.7); Platelet Count 384 T/CUMM (130-400); Red Blood Count 4.02 MC/CUMM (3.8-5.5); Red Cell Distribution Width 18.6 % (9.3-17.3); White Blood Count 5.7 T/CUMM (4-12)
[2021-07-02 05:32] LABS: Calcium 8.3 MG/DL (8.5-10.1); Osmolality,Calculated 284.1 MOS/KG (273-304); Potassium 3.4 MMOL/L (3.5-5.1)
[2021-07-02] MEDS ORDERED: POTASSIUM CHLORIDE 20 MEQ TABLET PO ONE (07:25)
[2021-07-02] MEDS: HEPARIN 5,000 UNIT/1 ML VIAL SUBCUT SCH (09:04)
[2021-07-02] MEDS: cefTRIAXone 1,000 MG in SODIUM CHLORIDE 0.9% 100 ML IV SCH (09:04)
[2021-07-02] MEDS: POLYETHYLENE GLYCOL POWDER 17 GM PACK PO SCH (09:04)
[2021-07-02] MEDS: PANTOPRAZOLE 40 MG TABLET PO SCH (09:04)
[2021-07-02 11:38] VITALS: BP 117/73
== END 2021-07-02 13:03 | disposition home or self-care (01) | DRG 249 ==
LOC: EDUNIT# → EDBD → N.ED 20:15 → N.EDINP 21:38 → N.5E 07-01 13:53
PROVIDERS: ADMIT Internal Medicine; ATTEND Internal Medicine

== ENCOUNTER 2021-08-09 08:08 | Inpatient (IN) ==
[2021-08-09] MEDS ORDERED: AZITHROMYCIN INJ 500 MG in SODIUM CHLORIDE 0.9% 250 ML IV STA (08:15)
[2021-08-09] MEDS ORDERED: cefTRIAXone 1,000 MG in SODIUM CHLORIDE 0.9% 100 ML IV STA (08:15)
[2021-08-09] MEDS ORDERED: DILTIAZEM 50 MG/10 ML VIAL IV STA (08:21)
[2021-08-09] MEDS ORDERED: DILTIAZEM INJ 100 MG in SODIUM CHLORIDE 0.9% 100 ML IV SCH (08:30)
[2021-08-09 08:37] LABS: Basophils % 0.2 % (0.0-0.8); Hematocrit 46.3 VOL% (35.7-47.0); Hemoglobin 14.1 GM/DL (12.0-16.0); Immature Granulocytes % 0.7 %; Immature Granulocytes Absolute 0.12 #; Lymphocytes # 0.5 10*3/uL (1.4-4.0); Lymphocytes % 2.8 % (21.3-54.2); Mean Corpuscular HGB Conc 30.5 GM/DL (32-36); Mean Corpuscular Volume 85.4 FL (87-102); Mean Platelet Volume 11.5 FL (9.6-12.0); Monocytes % 8.6 % (1.7-12.7); Neutrophils % 87.7 % (38.7-73.9); Platelet Count 263 T/CUMM (130-400); Red Blood Count 5.42 MC/CUMM (3.8-5.5); Red Cell Distribution Width 21.9 % (9.3-17.3); White Blood Count 16.2 T/CUMM (4-12)
[2021-08-09 08:56] LABS: Lymphocytes 2 % (20-55); Platelet Estimate Adequate; Segmented Neutrophils 90 % (50-85); Total Cells Counted 100
[2021-08-09] MEDS ORDERED: ALBUTEROL/IPRATROPIUM 3 ML NEB RESP TX STA (09:24)
[2021-08-09] MEDS ORDERED: PIPERACILLIN/TAZOBACTAM 3,375 MG in SODIUM CHLORIDE 0.9% 100 ML IV STA (09:28)
[2021-08-09 09:56] LABS: Albumin 2.2 G/DL (3.4-5.0); Bilirubin,Total 1.3 MG/DL (0.20-1.00); Calcium 8.9 MG/DL (8.5-10.1); Osmolality,Calculated 271.2 MOS/KG (273-304); Potassium 3.7 MMOL/L (3.5-5.1); Total Protein 7.2 G/DL (6.4-8.2)
[2021-08-09] MEDS ORDERED: SODIUM CHLORIDE 0.9% 1,000 ML IV STA (10:20)
[2021-08-09] MEDS ORDERED: AMIODARONE INJ 150 MG in DEXTROSE 5% 100 ML IV ONE (10:52)
[2021-08-09] MEDS ORDERED: AMIODARONE INJ 450 MG in DEXTROSE 5% 241 ML IV SCH ×2 (11:00→21:30)
[2021-08-09] MEDS ORDERED: ALBUTEROL 2.5 MG/3 ML NEB RESP TX PRN (11:02)
[2021-08-09] MEDS ORDERED: DIGOXIN 0.5 MG/2 ML AMP IV STA (11:44)
[2021-08-09] MEDS ORDERED: ONDANSETRON 4 MG/2 ML VIAL IV PRN (11:46)
[2021-08-09] MEDS ORDERED: SODIUM CHLORIDE 0.9% 500 ML IV STA (11:52)
[2021-08-09] MEDS ORDERED: DIGOXIN 0.5 MG/2 ML AMP IV ONE (12:15)
[2021-08-09 12:49] LABS: Bacteria,Urine Occasional /HPF (Few); Mucus,Urine Many /LPF (Occasional); RBC,Urine 3 /HPF (0-4); Squamous Epithelial Cell,Urine Occasional /HPF (0-10); Urine Appearance Slightly Cloudy (Clear); Urine Color Dark yellow (Yellow)
[2021-08-09] MEDS: PANTOPRAZOLE 40 MG VIAL IV SCH (12:49)
[2021-08-09] MEDS: ENOXAPARIN 40 MG/0.4 ML SYRINGE SUBCUT SCH (12:49)
[2021-08-09 12:50] LABS: Urine Specific Gravity 1.025 (1.001-1.035)
[2021-08-09 12:51] LABS: Bilirubin,Urine Large mg/dL (Negative); Blood, Urine Small mg/dL (Negative); Glucose,Urine (UA) 1+ mg/dL (Negative); Ketones,Urine 2+ mg/dL (Negative); Nitrite,Urine Positive (Negative); Protein,Urine 2+ MG/DL; Urine Urobilinogen > 8.0 EU/DL (<2.0)
[2021-08-09] MEDS ORDERED: LACTATED RINGERS 500 ML IV ONE (13:00)
[2021-08-09] MEDS: VANCOMYCIN INJ 1,000 MG in SODIUM CHLORIDE 0.9% 250 ML IV SCH (14:19)
[2021-08-09] MEDS ORDERED: METOPROLOL TARTRATE 5 MG/5 ML VIAL IV STA ×2 (14:52→18:08)
[2021-08-09] MEDS: LACTATED RINGERS 1,000 ML IV SCH (15:09)
[2021-08-09] MEDS: methylPREDNISolone SOD SUC 40 MG/1 ML VIAL IV SCH (18:19)
[2021-08-09] MEDS: MEROPENEM 500 MG in SODIUM CHLORIDE 0.9% 100 ML IV SCH ×2 (18:25→20:50)
[2021-08-09] MEDS ORDERED: METOPROLOL TARTRATE 5 MG/5 ML VIAL IV PRN (18:38)
[2021-08-09] MEDS ORDERED: DEXTROSE 5% IV ONE (21:16)
[2021-08-09] MEDS ORDERED: AMIODARONE IV ONE (21:16)
[2021-08-09 21:19] LABS: INR 1.1
[2021-08-09] MEDS ORDERED: AMIODARONE 150 MG/3 ML VIAL ONE (21:29)
[2021-08-10 02:46] LABS: ABG Base Excess -0.8 MMOL/L (-2.5-2.5); ABG HCO3 25.6 MMOL/L (20-26); ABG Oxygen Saturation 93.4 % (95-100); ABG PCO2 49.5 MM HG (35-48); ABG PH 7.331 (7.35-7.45); ABG PO2 68.2 MM HG (80-95); ABG TCO2 27.1 MMOL/L (23-27)
[2021-08-10 04:46] LABS: Alanine Aminotransferase < 9 U/L (13-56); Albumin 1.1 G/DL (3.4-5.0); Alkaline Phosphatase 84 U/L (45-117); Aspartate Amino Transferase 5 U/L (0-37); Blood Urea Nitrogen 13 MG/DL (7-18); Calcium 7.5 MG/DL (8.5-10.1); Carbon Dioxide 20 MMOL/L (21-32); Estimated Glom Filtration Rate 148 ML/MIN; Glucose 99 MG/DL (74-106); Osmolality,Calculated 272.8 MOS/KG (273-304); Sodium 137 MMOL/L (136-145); Total Protein 3.8 G/DL (6.4-8.2)
[2021-08-10 05:00] LABS: Basophils % 0.2 % (0.0-0.8); Hemoglobin 10.9 GM/DL (12.0-16.0); Immature Granulocytes % 0.8 %; Immature Granulocytes Absolute 0.12 #; Lymphocytes # 0.3 10*3/uL (1.4-4.0); Lymphocytes % 1.7 % (21.3-54.2); Mean Corpuscular HGB Conc 29.4 GM/DL (32-36); Mean Platelet Volume 9.4 FL (9.6-12.0); Neutrophils % 93.3 % (38.7-73.9); Platelet Count 347 T/CUMM (130-400); Red Blood Count 4.17 MC/CUMM (3.8-5.5); Red Cell Distribution Width 20.8 % (9.3-17.3); White Blood Count 14.7 T/CUMM (4-12)
[2021-08-10 05:04] LABS: Hematocrit 37.1 VOL% (35.7-47.0)
[2021-08-10 05:14] LABS: Band Neutrophils 3 % (0-10); Hypochromia Slight; Microcytosis Slight; Platelet Estimate Adequate; Segmented Neutrophils 94 % (50-85); Total Cells Counted 100
[2021-08-10] MEDS ORDERED: MEROPENEM 1,000 MG VIAL ONE (05:19)
[2021-08-10] MEDS: methylPREDNISolone SOD SUC 40 MG/1 ML VIAL IV SCH ×3 (05:32→23:05)
[2021-08-10] MEDS: MEROPENEM 500 MG in SODIUM CHLORIDE 0.9% 100 ML IV SCH ×4 (05:39→20:34)
[2021-08-10] MEDS: VANCOMYCIN INJ 1,000 MG in SODIUM CHLORIDE 0.9% 250 ML IV SCH ×2 (06:10→13:29)
[2021-08-10] MEDS: AMIODARONE INJ 450 MG in DEXTROSE 5% 241 ML IV SCH (07:35)
[2021-08-10] MEDS ORDERED: MAGNESIUM SULF RIDER 4 GM/100 ML PREMIX IV ONE (07:38)
[2021-08-10] MEDS ORDERED: DIGOXIN 0.5 MG/2 ML AMP IV ONE (07:41)
[2021-08-10] MEDS: LACTATED RINGERS 1,000 ML IV SCH (09:11)
[2021-08-10] MEDS: ENOXAPARIN 40 MG/0.4 ML SYRINGE SUBCUT SCH (13:28)
[2021-08-10] MEDS: PANTOPRAZOLE 40 MG VIAL IV SCH (13:28)
[2021-08-10] MEDS ORDERED: LABETALOL 20 MG/4 ML SYRINGE IV ONE (19:16)
[2021-08-10] MEDS: CLORAZEPATE 3.75 MG TABLET PO PRN (19:20)
[2021-08-10 19:43] LABS: Calcium 8.8 MG/DL (8.5-10.1); Osmolality,Calculated 277.1 MOS/KG (273-304); Potassium 4.3 MMOL/L (3.5-5.1)
[2021-08-11] MEDS: AMIODARONE INJ 450 MG in DEXTROSE 5% 241 ML IV SCH (00:10)
[2021-08-11] MEDS: VANCOMYCIN INJ 1,000 MG in SODIUM CHLORIDE 0.9% 250 ML IV SCH (01:28)
[2021-08-11] MEDS: MEROPENEM 500 MG in SODIUM CHLORIDE 0.9% 100 ML IV SCH ×4 (02:30→20:20)
[2021-08-11 04:22] LABS: Basophils % 0.1 % (0.0-0.8); Hematocrit 37.2 VOL% (35.7-47.0); Hemoglobin 11.1 GM/DL (12.0-16.0); Immature Granulocytes % 0.8 %; Immature Granulocytes Absolute 0.11 #; Lymphocytes # 0.2 10*3/uL (1.4-4.0); Lymphocytes % 1.7 % (21.3-54.2); Mean Corpuscular HGB Conc 29.8 GM/DL (32-36); Mean Corpuscular Volume 88.4 FL (87-102); Mean Platelet Volume 9.2 FL (9.6-12.0); Monocytes % 4.3 % (1.7-12.7); Neutrophils % 93.1 % (38.7-73.9); Platelet Count 418 T/CUMM (130-400); Red Blood Count 4.21 MC/CUMM (3.8-5.5); Red Cell Distribution Width 20.5 % (9.3-17.3); White Blood Count 14.1 T/CUMM (4-12)
[2021-08-11 04:24] LABS: Alanine Aminotransferase 12 U/L (13-56); Albumin 1.7 G/DL (3.4-5.0); Alkaline Phosphatase 114 U/L (45-117); Aspartate Amino Transferase 10 U/L (0-37); Bilirubin,Total < 0.39 MG/DL (0.20-1.00); Blood Urea Nitrogen 24 MG/DL (7-18); Calcium 8.4 MG/DL (8.5-10.1); Carbon Dioxide 28 MMOL/L (21-32); Estimated Glom Filtration Rate 118 ML/MIN; Glucose 131 MG/DL (74-106); Osmolality,Calculated 282.5 MOS/KG (273-304); Potassium 4.5 MMOL/L (3.5-5.1); Sodium 139 MMOL/L (136-145); Total Protein 5.7 G/DL (6.4-8.2)
[2021-08-11 04:46] LABS: Elliptocytes 1+; Lymphocytes 1 % (20-55); Platelet Estimate Increased; Segmented Neutrophils 97 % (50-85); Total Cells Counted 100
[2021-08-11] MEDS: LACTATED RINGERS 1,000 ML IV SCH ×3 (05:15→07:22)
[2021-08-11] MEDS: ARFORMOTEROL 15 MCG/2 ML NEB RESP TX SCH ×3 (07:14→19:38)
[2021-08-11] MEDS: methylPREDNISolone SOD SUC 40 MG/1 ML VIAL IV SCH ×3 (08:32→23:21)
[2021-08-11] MEDS ORDERED: ALBUTEROL/IPRATROPIUM 3 ML NEB RESP TX PRN (08:46)
[2021-08-11] MEDS: PANTOPRAZOLE 40 MG VIAL IV SCH (11:03)
[2021-08-11] MEDS: ENOXAPARIN 40 MG/0.4 ML SYRINGE SUBCUT SCH (11:03)
[2021-08-11] MEDS: CLORAZEPATE 3.75 MG TABLET PO PRN (21:22)
[2021-08-12] MEDS: MEROPENEM 500 MG in SODIUM CHLORIDE 0.9% 100 ML IV SCH ×4 (03:49→20:21)
[2021-08-12 04:39] LABS: Alanine Aminotransferase 18 U/L (13-56); Albumin 1.6 G/DL (3.4-5.0); Alkaline Phosphatase 122 U/L (45-117); Aspartate Amino Transferase 28 U/L (0-37); Bilirubin,Total < 0.39 MG/DL (0.20-1.00); Blood Urea Nitrogen 25 MG/DL (7-18); Calcium 8.5 MG/DL (8.5-10.1); Carbon Dioxide 26 MMOL/L (21-32); Estimated Glom Filtration Rate 115 ML/MIN; Glucose 115 MG/DL (74-106); Potassium 4.8 MMOL/L (3.5-5.1); Sodium 136 MMOL/L (136-145); Total Protein 5.2 G/DL (6.4-8.2)
[2021-08-12 06:05] LABS: Basophils % 0.3 % (0.0-0.8); Hemoglobin 10.5 GM/DL (12.0-16.0); Immature Granulocytes % 0.7 %; Immature Granulocytes Absolute 0.08 #; Lymphocytes # 0.2 10*3/uL (1.4-4.0); Lymphocytes % 1.8 % (21.3-54.2); Mean Corpuscular Volume 87.7 FL (87-102); Mean Platelet Volume 9.2 FL (9.6-12.0); Monocytes % 2.8 % (1.7-12.7); Neutrophils % 94.4 % (38.7-73.9); Platelet Count 421 T/CUMM (130-400); Red Blood Count 3.99 MC/CUMM (3.8-5.5); Red Cell Distribution Width 20.6 % (9.3-17.3); White Blood Count 11.7 T/CUMM (4-12)
[2021-08-12] MEDS: CLORAZEPATE 3.75 MG TABLET PO PRN ×3 (06:15→20:21)
[2021-08-12 06:20] LABS: Lymphocytes 2 % (20-55); Platelet Estimate Increased; Segmented Neutrophils 94 % (50-85); Total Cells Counted 100
[2021-08-12] MEDS: ARFORMOTEROL 15 MCG/2 ML NEB RESP TX SCH ×2 (07:58→19:13)
[2021-08-12] MEDS: methylPREDNISolone SOD SUC 40 MG/1 ML VIAL IV SCH ×3 (08:50→20:21)
[2021-08-12] MEDS: ENOXAPARIN 40 MG/0.4 ML SYRINGE SUBCUT SCH (11:25)
[2021-08-13] MEDS: MEROPENEM 500 MG in SODIUM CHLORIDE 0.9% 100 ML IV SCH ×4 (02:58→20:14)
[2021-08-13 05:13] LABS: Alanine Aminotransferase 17 U/L (13-56); Albumin 1.8 G/DL (3.4-5.0); Alkaline Phosphatase 107 U/L (45-117); Aspartate Amino Transferase 10 U/L (0-37); Bilirubin,Total < 0.39 MG/DL (0.20-1.00); Blood Urea Nitrogen 21 MG/DL (7-18); Calcium 8.5 MG/DL (8.5-10.1); Estimated Glom Filtration Rate 125 ML/MIN; Glucose 123 MG/DL (74-106); Total Protein 5.4 G/DL (6.4-8.2)
[2021-08-13 05:17] LABS: Osmolality,Calculated 280.5 MOS/KG (273-304); Potassium 4.5 MMOL/L (3.5-5.1); Sodium 139 MMOL/L (136-145)
[2021-08-13 05:20] LABS: Carbon Dioxide 36 MMOL/L (21-32)
[2021-08-13 05:37] LABS: Basophils % 0.1 % (0.0-0.8); Hematocrit 34.1 VOL% (35.7-47.0); Hemoglobin 10.1 GM/DL (12.0-16.0); Immature Granulocytes % 1.2 %; Immature Granulocytes Absolute 0.11 #; Lymphocytes # 0.2 10*3/uL (1.4-4.0); Lymphocytes % 2.5 % (21.3-54.2); Mean Corpuscular HGB Conc 29.6 GM/DL (32-36); Mean Corpuscular Volume 88.3 FL (87-102); Mean Platelet Volume 9.3 FL (9.6-12.0); Monocytes % 3.5 % (1.7-12.7); Neutrophils % 92.7 % (38.7-73.9); Platelet Count 442 T/CUMM (130-400); Red Blood Count 3.86 MC/CUMM (3.8-5.5); Red Cell Distribution Width 20.9 % (9.3-17.3); White Blood Count 9.4 T/CUMM (4-12)
[2021-08-13 05:50] LABS: Hypochromia Slight; Lymphocytes 4 % (20-55); Microcytosis Slight; Platelet Estimate Adequate; Segmented Neutrophils 95 % (50-85); Total Cells Counted 100
[2021-08-13] MEDS: ARFORMOTEROL 15 MCG/2 ML NEB RESP TX SCH ×2 (07:41→18:18)
[2021-08-13] MEDS: PANTOPRAZOLE 40 MG TABLET PO SCH (09:11)
[2021-08-13] MEDS: methylPREDNISolone SOD SUC 40 MG/1 ML VIAL IV SCH ×2 (09:12→20:15)
[2021-08-13] MEDS: MORPHINE 4 MG/1 ML VIAL IV PRN ×2 (10:31→20:14)
[2021-08-13] MEDS: ENOXAPARIN 40 MG/0.4 ML SYRINGE SUBCUT SCH (11:59)
[2021-08-13] MEDS: CLORAZEPATE 3.75 MG TABLET PO PRN ×2 (14:09→20:15)
[2021-08-13 16:58] VITALS: BP 159/88
[2021-08-14] MEDS: MEROPENEM 500 MG in SODIUM CHLORIDE 0.9% 100 ML IV SCH ×4 (03:04→20:02)
[2021-08-14] MEDS: MORPHINE 4 MG/1 ML VIAL IV PRN (04:21)
[2021-08-14 04:58] LABS: Basophils % 0.4 % (0.0-0.8); Hematocrit 35.7 VOL% (35.7-47.0); Hemoglobin 10.6 GM/DL (12.0-16.0); Immature Granulocytes % 3.6 %; Immature Granulocytes Absolute 0.34 #; Lymphocytes # 0.5 10*3/uL (1.4-4.0); Lymphocytes % 4.9 % (21.3-54.2); Mean Corpuscular HGB Conc 29.7 GM/DL (32-36); Mean Corpuscular Volume 88.4 FL (87-102); Monocytes % 3.5 % (1.7-12.7); Neutrophils % 87.6 % (38.7-73.9); Platelet Count 440 T/CUMM (130-400); Red Blood Count 4.04 MC/CUMM (3.8-5.5); Red Cell Distribution Width 20.7 % (9.3-17.3); White Blood Count 9.6 T/CUMM (4-12)
[2021-08-14 05:02] LABS: Calcium 8.2 MG/DL (8.5-10.1)
[2021-08-14 05:14] LABS: Band Neutrophils 1 % (0-10); Hypochromia 1+; Lymphocytes 5 % (20-55); Microcytosis 1+; Segmented Neutrophils 89 % (50-85); Total Cells Counted 100
[2021-08-14 05:15] LABS: Ovalocytes Slight; Platelet Estimate Increased
[2021-08-14 05:54] LABS: Potassium 4.7 MMOL/L (3.5-5.1)
[2021-08-14 05:55] LABS: Osmolality,Calculated 280.5 MOS/KG (273-304)
[2021-08-14] MEDS: ARFORMOTEROL 15 MCG/2 ML NEB RESP TX SCH ×2 (07:00→19:39)
[2021-08-14] MEDS: methylPREDNISolone SOD SUC 40 MG/1 ML VIAL IV SCH ×2 (09:51→20:02)
[2021-08-14] MEDS: PANTOPRAZOLE 40 MG TABLET PO SCH (09:51)
[2021-08-14] MEDS: ENOXAPARIN 40 MG/0.4 ML SYRINGE SUBCUT SCH (12:52)
== END 2021-08-14 20:22 | disposition hospice, home (50) | DRG 720 ==
LOC: EDUNIT# → EDBD → N.ED 08:08 → N.EDINP 11:02 → SUATTDRO 11:02 → N.CC 08-10 18:20
PROVIDERS: ADMIT Internal Medicine; ATTEND Internal Medicine